=== PATIENT | female | born 1930 | race Two or more races ===

== ENCOUNTER 2019-02-08 11:56 | Inpatient (IN) | payer MEDICARE, OTHER ==
[~2019-02-08] VITALS: Ht 167.6 cm; Wt 76.2 kg
[~2019-02-08 11:56] MED LIST: KEFLEX500 MG ORAL
--- NOTE | 2019-02-08 12:00 | NUR ---
ED Nurse Note: pt arrives via ambulance from home with caregiver present for c/o increased weakness. pt at normal mentation. pt is nonverbal but follows with eyes and withdrawal to pain. pt tolerates iv and lab draw well.
[2019-02-08 12:33] LABS: BASOPHILS % (AUTO) 1.1 % (0.0-2.0); EOSINOPHILS % (AUTO) 2.8 % (0.0-3.0); HEMOGLOBIN 11.1 G/DL (12.0-16.0); LYMPHOCYTES % (AUTO) 22.5 % (20.0-45.0); MEAN CORPUSCULAR VOLUME 90 FL (80-99); MONOCYTES % (AUTO) 6.9 % (1.0-10.0); NEUTROPHILS % (AUTO) 66.8 % (45.0-75.0); PLATELET COUNT 183 K/UL (150-450); RED CELL DISTRIBUTION WIDTH 14.2 % (11.6-14.8); WHITE BLOOD COUNT 9.2 K/UL (4.8-10.8)
[2019-02-08 12:43] LABS: ANION GAP 12 mmol/L (5-15); BLOOD UREA NITROGEN 61 mg/dL (7-18); CALCIUM 8.9 MG/DL (8.5-10.1); CARBON DIOXIDE 27 MMOL/L (21-32); CHLORIDE 105 MMOL/L (98-107); POTASSIUM 5.2 MMOL/L (3.5-5.1); SODIUM 144 MMOL/L (136-145)
[2019-02-08 12:55] LABS: ALANINE AMINOTRANSFERASE 12 U/L (12-78); ALBUMIN 2.9 G/DL (3.4-5.0); ALBUMIN/GLOBULIN RATIO 0.7 (1.0-2.7); ALKALINE PHOSPHATASE 60 U/L (46-116); ASPARTATE AMINO TRANSFERASE 16 U/L (15-37); BILIRUBIN,TOTAL 0.6 MG/DL (0.2-1.0); CKMB 1.7 NG/ML (0.0-3.6); CREATINE KINASE 101 U/L (26-308)
[2019-02-08 12:56] VITALS: BP 114/76
[2019-02-08] MEDS ORDERED: TRAZODONE HCL50 MG ORAL (13:14)
[2019-02-08] MEDS ORDERED: VITAMIN D400 INTLU ORAL (13:14)
[2019-02-08] MEDS ORDERED: JANUVIA25 MG ORAL (13:14)
[2019-02-08] MEDS ORDERED: NEXIUM40 MG ORAL (13:14)
[2019-02-08] MEDS ORDERED: CREON DR 24,001 EACH PO (13:14)
[2019-02-08] MEDS ORDERED: DEPAKOTE250 MG PO (13:14)
[2019-02-08] MEDS ORDERED: MIRALAX17 G2 ORAL (13:14)
[2019-02-08] MEDS ORDERED: XARELTO10 MG ORAL (13:14)
[2019-02-08] MEDS ORDERED: CRESTOR10 M2 ORAL (13:14)
[2019-02-08] MEDS ORDERED: ATENOLOL25 MG ORAL (13:14)
[2019-02-08] MEDS ORDERED: FUROSEMIDE40 MG ORAL (13:14)
[2019-02-08] MEDS ORDERED: FOLIC ACID1 MG ORAL (13:14)
[2019-02-08] MEDS ORDERED: SPIRONOLACTONE25 MG ORAL (13:14)
--- NOTE | 2019-02-08 13:16 | NUR ---
ED Nurse Note: Troponin 0.104; Dr Soto notified and made aware.
[2019-02-08] MEDS ORDERED: Aspirin Baby 81mg ORAL ONE (13:30)
--- NOTE | 2019-02-08 13:49 | NUR ---
ED Nurse Note: pt with st cath urine obtained and urine sent.. small skin tear noted to right forearm md aware and tech to apply steri-strips to area. pt tolerates well. no other skin wounds, some ecchymosis noted to bilat arms.
--- NOTE | 2019-02-08 13:59 | Diagnostic Imaging Report ---
Indication: Shortness of breath Technique: One view of the chest Comparison: none Findings: Patient is rotated to the right. There is bilateral interstitial edema. The heart is enlarged. There is possibly a small amount of pleural fluid bilaterally. Impression: Cardiac megaly Bilateral interstitial edema and possible small pleural effusions
--- NOTE | 2019-02-08 14:12 | Emergency Room Report ---
History of Present Illness General Chief Complaint: Generalized Weakness Source: EMS, Caregiver Present Illness HPI 89-year-old female presents ED for evaluation. Brought in by EMS from home. For increased weakness also appears to be short of breath x 1 day. Building Performance Specialist at bedside states that patient has history of CHF. Recently discharged from [facility]. Denies chest pain. Denies fevers or chills. No other aggravating relieving factors. Denies any other associated symptoms Allergies: Coded Allergies: No Known Allergies (Unverified , 01/24/15) Patient History Past Medical History: DM, HTN, CHF Past Surgical History: none Pertinent Family History: none Social History: Denies: smoking, alcohol use, drug use Now: No Immunizations: UTD Reviewed Nursing Documentation: PMH: Agreed; PSxH: Agreed Nursing Documentation-PMH Past Medical History: No History, Except For Hx Cardiac Problems: Yes - HYPERLIPIDEMIA, NONSPECIFIED CARDIAC HISTORY. Hx Hypertension: Yes Hx Diabetes: Yes Review of Systems All Other Systems: limited Physical Exam Vital Signs Date Time Temp Pulse Resp B/P (MAP) Pulse Ox O2 Delivery O2 Flow Rate FiO2 02/08/19 11:49 98.4 104 24 110/68 (82) 100 Non-Rebreather 15.0 Sp02 EP Interpretation: reviewed, normal General Appearance: GCS 15, non-toxic, mild distress Head: normocephalic, atraumatic Eyes: bilateral eye normal inspection, bilateral eye PERRL ENT: hearing grossly normal, normal pharynx, no angioedema, normal voice Neck: full range of motion, supple/symm/no masses Respiratory: chest non-tender, crackles, speaking full sentences Cardiovascular #1: regular rate, rhythm, no edema Cardiovascular #2: 2+ carotid (R), 2+ carotid (L), 2+ radial (R), 2+ radial (L) , 2+ dorsalis pedis (R), 2+ dorsalis pedis (L) Gastrointestinal: normal bowel sounds, non tender, soft, non-distended, no guarding, no rebound Rectal: deferred Genitourinary: normal inspection, no CVA tenderness Musculoskeletal: back normal, gait/station normal, normal range of motion, non- tender Neurologic: other - lethargic Psychiatric: other - lethargic Reflexes: 3+ bicep (R), 3+ bicep (L), 3+ tricep (R), 3+ tricep (L), 3+ knee (R) , 3+ knee (L) Lymphatic: no adenopathy Medical Decision Making Diagnostic Impression: Primary Impression: CHF exacerbation Qualified Codes: I50.9 - Heart failure, unspecified Additional Impressions: Weakness Hyperkalemia Renal insufficiency ER Course Hospital Course 89 yo F presents to ED c/o SOB, weakness Differential diagnoses include: W[place]/unstable angina, contusion, muscle strain, PTX, rib fracture Clinical course Patient placed on stretcher. on button tufter. After initial history and physical I ordered labs, EKG, chest x-ray, labs reviewed- no leukocytosis, hemoglobin/hematocrit stable, trop 0.104, BUN/ Cr elevated, BNP 8992. K 5.2. EKG - not specified rhythm, LBBB, no acute ischemic changes interpreted by me Chest x-ray- cardiomegaly, CHF Lasix given. patient is DNr/selective. aspirin given. Case discussed with Dr. Tao and he agreed to accept the patient to his service for further care and support I. I feel this is a highly complex case requiring extensive working including EKG/Rhythm strip, Xray/CT/US, Blood/urine lab work, repeat exams while in ED, and administration of strong opiates/narcotics for pain control, admission to hospital or close patient follow up. Diagnosis - CHF exacerbation, weakness, hyperkalemia admitted to telemetry in serious condition Labs Test 02/08/19 12:20 White Blood Count 9.2 K/UL (4.8-10.8) Red Blood Count 3.90 M/UL (4.20-5.40) Hemoglobin 11.1 G/DL (12.0-16.0) Hematocrit 35.0 % (37.0-47.0) Mean Corpuscular Volume 90 FL (80-99) Mean Corpuscular Hemoglobin 28.3 PG (27.0-31.0) Mean Corpuscular Hemoglobin Concent 31.5 G/DL (32.0-36.0) Red Cell Distribution Width 14.2 % (11.6-14.8) Platelet Count 183 K/UL (150-450) Mean Platelet Volume 9.6 FL (6.5-10.1) Neutrophils (%) (Auto) 66.8 % (45.0-75.0) Lymphocytes (%) (Auto) 22.5 % (20.0-45.0) Monocytes (%) (Auto) 6.9 % (1.0-10.0) Eosinophils (%) (Auto) 2.8 % (0.0-3.0) Basophils (%) (Auto) 1.1 % (0.0-2.0) Sodium Level 144 MMOL/L (136-145) Potassium Level 5.2 MMOL/L (3.5-5.1) Chloride Level 105 MMOL/L (98-107) Carbon Dioxide Level 27 MMOL/L (21-32) Anion Gap 12 mmol/L (5-15) Blood Urea Nitrogen 61 mg/dL (7-18) Creatinine 3.0 MG/DL (0.55-1.30) Estimat Glomerular Filtration Rate mL/min (>60) Glucose Level 140 MG/DL (74-106) Lactic Acid Level 1.30 mmol/L (0.4-2.0) Calcium Level 8.9 MG/DL (8.5-10.1) Total Bilirubin 0.6 MG/DL (0.2-1.0) Aspartate Amino Transf (AST/SGOT) 16 U/L (15-37) Alanine Aminotransferase (ALT/SGPT) 12 U/L (12-78) Alkaline Phosphatase 60 U/L (46-116) Total Creatine Kinase 101 U/L (26-308) Creatine Kinase MB 1.7 NG/ML (0.0-3.6) Creatine Kinase MB Relative Index 1.6 Troponin I 0.104 ng/mL (0.000-0.056) Pro-B-Type Natriuretic Peptide 8992 pg/mL (0-125) Total Protein 7.1 G/DL (6.4-8.2) Albumin 2.9 G/DL (3.4-5.0) Globulin 4.2 g/dL Albumin/Globulin Ratio 0.7 (1.0-2.7) EKG Diagnostic Results Rate: normal Rhythm: NSR ST Segments: no acute changes ASA given to the pt in ED: No Rhythm Strip Diag. Results EP Interpretation: yes Rhythm: NSR, no PVC's, no ectopy Chest X-Ray Diagnostic Results Chest X-Ray Diagnostic Results : Chest X-Ray Ordered: Yes # of Views/Limited/Complete: 1 View Indication: Shortness of Breath EP Interpretation: Yes Interpretation: no pneumothorax, other - bilateral effusion/CHF Impression: Other - chf Electronically Signed by: Electronically signed by Miguelangel Soto MD Last Vital Signs Date Time Temp Pulse Resp B/P (MAP) Pulse Ox O2 Delivery O2 Flow Rate FiO2 02/08/19 12:57 105 20 Room Air 02/08/19 12:56 98.4 114/76 100 02/08/19 11:49 15.0 Status: improved Disposition: ADMITTED INPATIENT Condition: Serious Referrals: NOT CHOSEN IPA/,REFERRING (PCP) Miguelangel Soto MD Feb 08, 2019 14:12
[2019-02-08] MEDS ORDERED: Insulin Human Regular 100units/ml 3ml IV ONE (14:15)
[2019-02-08 14:23] LABS: APPEARANCE,URINE CLEAR; BILIRUBIN, URINE NEGATIVE (NEGATIVE); COLOR,URINE PALE YELLOW; GLUCOSE, URINE (UA) NEGATIVE (NEGATIVE); KETONES,URINE NEGATIVE (NEGATIVE); LEUKOCYTE ESTERASE ,URINE 3+ (NEGATIVE); NITRITE,URINE NEGATIVE (NEGATIVE); PH,URINE 8 (4.5-8.0); PROTEIN,URINE NEGATIVE (NEGATIVE); UROBILINOGEN,URINE NORMAL MG/DL (0.0-1.0)
--- NOTE | 2019-02-08 14:32 | NUR ---
ED Nurse Note: attempted to upload pic of right forearm skin tear, foam charger assisting and unalbe to lad pics.
[2019-02-08 15:01] VITALS: BP 116/94
--- NOTE | 2019-02-08 15:10 | NUR ---
ED Nurse Note: Attempted to give report to receiving nurse, unavailable at this time. Charge nurse aware.
--- NOTE | 2019-02-08 15:30 | NUR ---
ED Nurse Note: Report given to CLAUDIA Pal.
[2019-02-08] MEDS ORDERED: Miralax 17gm pkt ORAL PRN (15:45)
[2019-02-08] MEDS ORDERED: Albuterol/Ipratropium 3ml neb HHN PRN (15:45)
[2019-02-08 16:00] VITALS: BP 94/60
--- NOTE | 2019-02-08 16:06 | NUR ---
ED Nurse Note: Patient transported to room 203 via gurney. No changes in mentation. Received by RN Kae. Belongings list acknowledged and signed.
--- NOTE | 2019-02-08 16:15 | NUR ---
NURSE NOTES: I received the patient from the ER. Patient non-verbal and caregiver at the bedside. Patient attached to the tele monitor. Patient's skin assessed and there was not any skin breakdown noted. Bed in the lowest position and call light within reach. Yellow socks placed on the patient. Patient's siderails padded and suction set-up. I will continue to monitor the patient and implement orders.
[2019-02-08] MEDS: NovoLOG Insulin Flexpen SUBQ SCH ×2 (17:24→20:57)
--- NOTE | 2019-02-08 19:02 | History & Physical ---
History and Physical History & Physicial Inder Tao MD Feb 08, 2019 19:02
--- NOTE | 2019-02-08 19:04 | Cardiac Electrophysiology PN ---
Subjective Subjective [id number] Objective Last 24 Hour Vital Signs Date Time Temp Pulse Resp B/P (MAP) Pulse Ox O2 Delivery O2 Flow Rate FiO2 02/08/19 16:02 111 28 116/94 96 02/08/19 16:00 82 02/08/19 16:00 98.2 84 20 94/60 (71) 96 02/08/19 15:58 Room Air 02/08/19 15:01 111 28 116/94 96 Room Air 02/08/19 12:57 105 20 Room Air 02/08/19 12:56 98.4 105 24 114/76 100 Room Air 02/08/19 11:49 98.4 104 24 110/68 (82) 100 Non-Rebreather 15.0 Laboratory Tests Test 02/08/19 12:20 02/08/19 13:40 White Blood Count 9.2 K/UL (4.8-10.8) Red Blood Count 3.90 M/UL (4.20-5.40) L Hemoglobin 11.1 G/DL (12.0-16.0) L Hematocrit 35.0 % (37.0-47.0) L Mean Corpuscular Volume 90 FL (80-99) Mean Corpuscular Hemoglobin 28.3 PG (27.0-31.0) Mean Corpuscular Hemoglobin Concent 31.5 G/DL (32.0-36.0) L Red Cell Distribution Width 14.2 % (11.6-14.8) Platelet Count 183 K/UL (150-450) Mean Platelet Volume 9.6 FL (6.5-10.1) Neutrophils (%) (Auto) 66.8 % (45.0-75.0) Lymphocytes (%) (Auto) 22.5 % (20.0-45.0) Monocytes (%) (Auto) 6.9 % (1.0-10.0) Eosinophils (%) (Auto) 2.8 % (0.0-3.0) Basophils (%) (Auto) 1.1 % (0.0-2.0) Sodium Level 144 MMOL/L (136-145) Potassium Level 5.2 MMOL/L (3.5-5.1) H Chloride Level 105 MMOL/L (98-107) Carbon Dioxide Level 27 MMOL/L (21-32) Anion Gap 12 mmol/L (5-15) Blood Urea Nitrogen 61 mg/dL (7-18) H Creatinine 3.0 MG/DL (0.55-1.30) H Estimat Glomerular Filtration Rate mL/min (>60) Glucose Level 140 MG/DL (74-106) H Lactic Acid Level 1.30 mmol/L (0.4-2.0) Calcium Level 8.9 MG/DL (8.5-10.1) Total Bilirubin 0.6 MG/DL (0.2-1.0) Aspartate Amino Transf (AST/SGOT) 16 U/L (15-37) Alanine Aminotransferase (ALT/SGPT) 12 U/L (12-78) Alkaline Phosphatase 60 U/L (46-116) Total Creatine Kinase 101 U/L (26-308) Creatine Kinase MB 1.7 NG/ML (0.0-3.6) Creatine Kinase MB Relative Index 1.6 Troponin I 0.104 ng/mL (0.000-0.056) Pro-B-Type Natriuretic Peptide 8992 pg/mL (0-125) H Total Protein 7.1 G/DL (6.4-8.2) Albumin 2.9 G/DL (3.4-5.0) L Globulin 4.2 g/dL Albumin/Globulin Ratio 0.7 (1.0-2.7) L Urine Color Pale yellow Urine Appearance Clear Urine pH 8 (4.5-8.0) Urine Specific [place] 1.010 (1.005-1.035) Urine Protein Negative (NEGATIVE) Urine Glucose (UA) Negative (NEGATIVE) Urine Ketones Negative (NEGATIVE) Urine Blood 1+ (NEGATIVE) H Urine Nitrite Negative (NEGATIVE) Urine Bilirubin Negative (NEGATIVE) Urine Urobilinogen Normal MG/DL (0.0-1.0) Urine Leukocyte Esterase 3+ (NEGATIVE) H Urine RBC 0-2 /HPF (0 - 2) Urine WBC 20-30 /HPF (0 - 2) H Urine Squamous Epithelial Cells Few /LPF (NONE/OCC) Urine Bacteria Few /HPF (NONE) Valeriy Hernandez MD Feb 08, 2019 19:04
--- NOTE | 2019-02-08 19:30 | NUR ---
NURSE NOTES: Received patient from Kae TAYLOR. Patient in bed, on room air, no s/s of respiratory distress. Bed in low position, locked, bed alarm on, call light within reach. Patient awake, but does not respond to questioning. Yells and withdrawals when attempting to assess patient. PIV 20 gauge on right hand intact, patent, no s/s of infection or infiltration.
--- NOTE | 2019-02-08 19:38 | NUR ---
CASE MANAGEMENT: REVIEW 89Y/F BIBA FROM HOME CC: SOB . GENERALIZED WEAKNESS SI: CHF EXACERBATION . T 98.4 HR 104 RR 24 BP 94/60 SAT 100% NON-REBREATHER 15.0 K 5.2 BUN 61 CR 3.0 TROPONIN I 0.104 BNP 8992 IS: ASA PO X1 LASIX IV X1 D50W IVF BOLUS X1 PATIENT ADMITTED TO TELEMETRY UNIT 02/08/2019 DCP: PATIENT IS FROM HOME
--- NOTE | 2019-02-08 19:40 | NUR ---
HAND-OFF: Report given to Dinorah Jacob RN.
[2019-02-08] MEDS ORDERED: ATIVAN0.5 MG (19:45)
[2019-02-08 20:00] VITALS: BP 123/72
[2019-02-08] MEDS ORDERED: cefTRIAXone 1 GM in D5W 55 ML IVPB SCH (20:00)
[2019-02-08] MEDS: Depakote 125mg Sprinkles ORAL SCH (21:00)
[2019-02-08] MEDS ORDERED: TraZODone 50mg tab ORAL SCH (21:00)
--- NOTE | 2019-02-08 21:00 | NUR ---
NURSE NOTES: Patient refusing oral medication, liquids, and solid foods. Spoke with daughter Uma and was instructed to have a woman give medication with crush with apple sauce. Crushed meds with apple sauce, had female staff attempt to give medication, patient spit it out and turned away.
--- NOTE | 2019-02-08 21:11 | NUR ---
NURSE NOTES: Notified Dr. Hernandez and left message regarding elevated troponin of 0.111.
--- NOTE | 2019-02-08 22:15 | History and Physical Report ---
DATE OF ADMISSION: 02/08/2019 CHIEF COMPLAINT: Shortness of breath. HISTORY OF PRESENT ILLNESS: This is an 89-year-old very delightful , [place]-speaking female with past medical history significant for advanced dementia, hypertension, dyslipidemia, congestive heart failure with history of atrial fibrillation with rapid ventricular rate, who was presented to the emergency room complaining about shortness of breath over one day. Caregiver stated the patient started having shortness of breath. She was recently admitted to [facility] from 01/27/2019 through 02/06/2019. The patient was admitted for the acute CHF exacerbation with pulmonary edema, status improved on IV Lasix, and subsequently was discharged home to be followed up with primary doctor, Dr. Barbosa. The patient's status gradually improved, however, in the past 24 hours, she has been having worsening of shortness of breath and shortly after initial evaluation in emergency, the patient was admitted to the hospital with acute CHF exacerbation with pulmonary edema. PAST MEDICAL HISTORY/PAST SURGICAL HISTORY: Significant for congestive heart failure, advanced dementia, hypertension, dyslipidemia, paroxysmal atrial fibrillation with rapid ventricular rate. History is very limited secondary to the patient's status. History mostly taken from the ER chart as well as [facility] record which was obtained and placed in the chart. MEDICATIONS AT HOME: Significant for atenolol 25 mg b.i.d., Keflex 500 mg twice a day, Depakote 250 twice a day, Nexium 40 mg b.i.d., folic acid 1 mg daily, Lasix 40 mg daily, Creon 1 tablet p.o. 3 times a day, MiraLAX p.r.n., Xarelto 10 mg daily, Crestor 10 mg daily, Januvia 25 mg daily, spironolactone 25 mg, trazodone 50, and vitamin D 2000 international units daily. ALLERGIES: No known drug allergies. SOCIAL HISTORY: No smoking, alcohol, or drugs. FAMILY HISTORY: Noncontributory. REVIEW OF SYSTEMS: Very limited secondary to the patient's status shortness of breath and weakness. Denies any hemoptysis or hematochezia. Denies any bright red blood per rectum. PHYSICAL EXAMINATION: VITAL SIGNS: On admission from the ER, significant for temperature 98.4, pulse of 104, respirations 24, blood pressure 110/68. GENERAL: The patient is awake, responsive, in no acute distress, answers questions with single word with moaning. HEAD AND NECK: Pupils are equal and reactive to light. Extraocular movements intact. Left eye has cataract. Neck was supple. Positive JVD. LUNGS: Good air entry. No wheezing or rales. Decreased in bases. HEART: S1, S2. Distant heart sounds. No murmur or gallops. ABDOMEN: Soft, nondistended, nontender, mildly obese. EXTREMITIES: No cyanosis, clubbing, or edema. NEUROLOGIC: Cranial nerves II through XII grossly intact. Motor is 5/5 in all extremities. Gait was not assessed due to the patient's status. RECTAL: Refused and deferred. GENITOURINARY: Refused and deferred. PSYCHIATRIC: Mood and affect is intact. LABORATORY AND DIAGNOSTIC DATA: Laboratory on admission from the ER, WBC of 9.2, hemoglobin 11, hematocrit 35, platelet is 183,000. Sodium 144, potassium 5.2, chloride 105, bicarb 27, BUN 61, creatinine 3.0, glucose is 140, lactic acid is 1.3, calcium is 8.9, total bilirubin of 0.6, AST of 16, ALT of 12. Troponin I is 0.104. ProBNP of 8992. UA is +3 leukocytes, +1 blood, rbc. Chest x-ray was noted to be cardiomegaly with bilateral interstitial edema with possible small pleural effusion. EKG is atrial flutter with left bundle-branch block, no ST elevation was identified. Compared to the old EKG at [facility] from January 27, no changes. ASSESSMENT: 1. Acute CHF exacerbation with diastolic dysfunction. 2. Pulmonary edema. 3. Acute kidney injury and chronic renal insufficiency. 4. Hypertension. 5. Dyslipidemia. 6. Diabetes type 2. 7. Advanced Alzheimer dementia. 8. Osteoarthritis. 9. Atrial flutter with left bundle-branch block. PLAN: Admit the patient to telemetry. We will follow up with laboratory, cardiac enzymes. Code status is as per POLST in the chart, DNR. Reviewed records from the [facility] and placed in the chart. Follow up with Dr. Hernandez, Cardiology Electrophysiology consultation as well as Dr. Cooper, Pulmonary/Critical Care. We will discuss with the family member extensively with regard to the care that will be provided. Inder Tao M.D. DR: Roselia JOB#: [id number] CC:
[2019-02-08 22:20] VITALS: BP 96/54
--- NOTE | 2019-02-08 22:20 | NUR ---
NURSE NOTES: Rechecked BP, 96/54, HR 91, will hold 2200 iv lasix, die maintenance technician at bedside to perform venous duplex.
--- NOTE | 2019-02-08 22:45 | NUR ---
NURSE NOTES: Received call from Dr. Hernandez, informed him there will be another troponin at 0400 and that patient is refusing meds, bp is 96/54 and lasix was held. Received orders to hold lasix for SBP <100. No other orders.
--- NOTE | 2019-02-08 23:47 | NUR ---
NURSE NOTES: Venous duplex negative.
[2019-02-09] VITALS (9 sets, daily range): BP systolic 77–154; BP diastolic 43–86
--- NOTE | 2019-02-09 00:45 | Consultation ---
DATE OF CONSULTATION: 02/08/2019 CARDIOLOGY CONSULTATION CONSULTING PHYSICIAN: Valeriy Hernandez M.D. REFERRING PHYSICIAN: Inder Tao M.D. REASON FOR CONSULTATION: Management of atrial flutter and congestive heart failure. HISTORY OF PRESENT ILLNESS: The patient is an 89-year-old [place] lady with history of hypertension, congestive heart failure, as well as history of atrial flutter and left bundle-branch block, and hyperlipidemia, who was recently at [facility] with atrial fibrillation with rapid ventricular response and CHF. The patient was just discharged from the hospital just 3 days ago. The patient was diuresed with Lasix, however at home she got more short of breath. The patient was admitted to the ER and was admitted for further evaluation and management. The patient was found to be in atrial flutter again with left bundle-branch block and congestive heart failure. REVIEW OF SYSTEMS: Negative other than what is mentioned in the history of present illness. PAST MEDICAL HISTORY: 1. Hypertension. 2. Diabetes. 3. Congestive heart failure. 4. Atrial flutter. 5. Left bundle-branch block. 6. Dementia. 7. Diabetes. FAMILY HISTORY: Noncontributory. SOCIAL HISTORY: Does not smoke or drink alcohol. PHYSICAL EXAMINATION: VITAL SIGNS: Showed blood pressure of 116/94, pulse of 110, respirations 28, and temperature 98.2. HEAD AND NECK: Shows no jugular venous distention. LUNGS: Decreased breath sounds. CARDIOVASCULAR: Shows irregular S1 and S2 with no gallop. ABDOMEN: Soft. EXTREMITIES: A 1+ pitting edema. LABORATORY DATA: Labs showed white count of 9.2, hemoglobin 11.9, hematocrit 35, and platelet count is 183,000. Sodium is 144, potassium is 5.2, BUN of 61, creatinine of 3, and glucose of 140. Troponin is 0.104. BNP is 9000. ASSESSMENT AND PLAN: 1. Elevated troponin of 0.104, likely due to renal failure with BUN and creatinine of 3. The patient has underlying left bundle-branch block and EKG is . We will get serial cardiac enzymes and repeat the echocardiogram for further evaluation of congestive heart failure with BNP of 9000 and also a creatinine of 3. The patient is on Lasix 40 mg IV every eight hours. 2. Atrial flutter, rate is currently controlled. Off any AV efrain blocking agents and is on anticoagulation with Xarelto. 3. Hypertension. Continue current heart failure medications. 4. Diabetes. 5. Dementia. Thank you very much, Dr. Tao, for allowing me to participate in the care of this patient. Please do not hesitate to contact me for any questions regarding my evaluation. Valeriy Hernandez M.D. DR: MAYNOR JOB#: [id number] CC:
[2019-02-09] MEDS: NovoLOG Insulin Flexpen SUBQ SCH ×4 (06:14→21:41)
[2019-02-09] MEDS ORDERED: sitaGLIPtin 50mg tab ORAL SCH (06:30)
--- NOTE | 2019-02-09 06:30 | NUR ---
NURSE NOTES: Patient pulled out IV, attempted to reinsert PIV, patient kept resisting and moving. Unable to obtain IV access after multiple attempts.
--- NOTE | 2019-02-09 07:30 | NUR ---
HAND-OFF: Report given to Shree TAYLOR. Plan of care endorsed.
--- NOTE | 2019-02-09 07:35 | NUR ---
NURSE NOTES: Received report from CLAUDIA Suarez. patient is resting in bed in stable condition. AO X1 with no signs and symptoms of acute distress at this time. Breathing unlabored in room air. No IV line, will try to get one later . Safety precaution in place; side rails up x2, and padded. Call Light and bed side table within reach, bed in lowest position, brakes and alarm on at all times. Will continue plan of care.
[2019-02-09] MEDS: Depakote 125mg Sprinkles ORAL SCH ×2 (08:29→21:40)
[2019-02-09 08:48] LABS: ANION GAP 9 mmol/L (5-15); BLOOD UREA NITROGEN 60 mg/dL (7-18); CALCIUM 9.2 MG/DL (8.5-10.1); CARBON DIOXIDE 29 MMOL/L (21-32); CHLORIDE 104 MMOL/L (98-107); CHOLESTEROL 123 MG/DL (< 200); CREATININE 2.7 MG/DL (0.55-1.30); POTASSIUM 4.1 MMOL/L (3.5-5.1); SODIUM 142 MMOL/L (136-145)
[2019-02-09] MEDS ORDERED: Xarelto 15mg tab ORAL SCH (09:00)
[2019-02-09 09:29] LABS: PHOSPHORUS 4.2 MG/DL (2.5-4.9)
--- NOTE | 2019-02-09 10:37 | Diagnostic Imaging Report ---
Indication: Shortness of breath Technique: One view of the chest Comparison: 02/08/2019 Findings: Patient is rotated to the right. There is evidence of persistent pleural fluid and/or atelectasis at the right lung base. Mild interstitial congestive changes persist. The aorta is tortuous. Degenerative changes of the right shoulder are again noted. Findings are unchanged Impression: Unchanged, over one day, findings as above.
--- NOTE | 2019-02-09 11:36 | Cardiac Electrophysiology PN ---
Assessment/Plan Assessment/Plan 1. Elevated troponin of 0.104, 0.11,0.08, likely due to renal failure with creatinine of 3. The patient has underlying left bundle-branch block. DNR and DNI. Treat medically. No CP. BP 90s avoid betablockers 2. Atrial flutter, rate is currently controlled off any AV efrain blocking agents and is on anticoagulation with Xarelto. 3. CHF EF 25% with BNP of 9000 and also a creatinine of 3. The patient is on Lasix 40 mg IV every eight hours. 3. Hypertension. Continue current heart failure medications. 4. Diabetes. 5. Dementia. 6. Renal failure. 7. DNR,DNI DW RN Subjective Subjective In atrial fib with controlled rate. DNR and DNI now Objective Last 24 Hour Vital Signs Date Time Temp Pulse Resp B/P (MAP) Pulse Ox O2 Delivery O2 Flow Rate FiO2 02/09/19 09:00 Room Air 02/09/19 08:22 107 20 96 Room Air 21 02/09/19 08:00 106 02/09/19 08:00 97.5 94 20 154/86 (108) 96 02/09/19 06:04 106 94/53 (67) 02/09/19 04:00 97.5 106 19 112/62 (79) 95 02/09/19 03:49 107 02/09/19 00:00 97.7 100 20 120/82 (95) 97 02/08/19 23:34 86 02/08/19 22:20 94 96/54 (68) 02/08/19 21:00 Room Air 02/08/19 20:00 97.7 105 20 123/72 (89) 97 02/08/19 16:02 111 28 116/94 96 02/08/19 16:00 82 02/08/19 16:00 98.2 84 20 94/60 (71) 96 02/08/19 15:58 Room Air 02/08/19 15:01 111 28 116/94 96 Room Air 02/08/19 12:57 105 20 Room Air 02/08/19 12:56 98.4 105 24 114/76 100 Room Air 02/08/19 11:49 98.4 104 24 110/68 (82) 100 Non-Rebreather 15.0 Intake and Output 02/08/19 02/09/19 19:00 07:00 Intake Total 60 ml 0 ml Output Total 100 ml Balance -40 ml 0 ml Intake Oral 60 ml 0 ml Output Urine Total 100 ml # Voids 2 Laboratory Tests Test 02/08/19 12:20 02/08/19 13:40 02/08/19 20:15 02/09/19 07:34 White Blood Count 9.2 K/UL (4.8-10.8) Red Blood Count 3.90 M/UL (4.20-5.40) L Hemoglobin 11.1 G/DL (12.0-16.0) L Hematocrit 35.0 % (37.0-47.0) L Mean Corpuscular Volume 90 FL (80-99) Mean Corpuscular Hemoglobin 28.3 PG (27.0-31.0) Mean Corpuscular Hemoglobin Concent 31.5 G/DL (32.0-36.0) L Red Cell Distribution Width 14.2 % (11.6-14.8) Platelet Count 183 K/UL (150-450) Mean Platelet Volume 9.6 FL (6.5-10.1) Neutrophils (%) (Auto) 66.8 % (45.0-75.0) Lymphocytes (%) (Auto) 22.5 % (20.0-45.0) Monocytes (%) (Auto) 6.9 % (1.0-10.0) Eosinophils (%) (Auto) 2.8 % (0.0-3.0) Basophils (%) (Auto) 1.1 % (0.0-2.0) Sodium Level 144 MMOL/L (136-145) 142 MMOL/L (136-145) Potassium Level 5.2 MMOL/L (3.5-5.1) H 4.1 MMOL/L (3.5-5.1) Chloride Level 105 MMOL/L (98-107) 104 MMOL/L (98-107) Carbon Dioxide Level 27 MMOL/L (21-32) 29 MMOL/L (21-32) Anion Gap 12 mmol/L (5-15) 9 mmol/L (5-15) Blood Urea Nitrogen 61 mg/dL (7-18) H 60 mg/dL (7-18) H Creatinine 3.0 MG/DL (0.55-1.30) H 2.7 MG/DL (0.55-1.30) H Estimat Glomerular Filtration Rate mL/min (>60) mL/min (>60) Glucose Level 140 MG/DL (74-106) H 139 MG/DL (74-106) H Lactic Acid Level 1.30 mmol/L (0.4-2.0) Calcium Level 8.9 MG/DL (8.5-10.1) 9.2 MG/DL (8.5-10.1) Total Bilirubin 0.6 MG/DL (0.2-1.0) Aspartate Amino Transf (AST/SGOT) 16 U/L (15-37) Alanine Aminotransferase (ALT/SGPT) 12 U/L (12-78) Alkaline Phosphatase 60 U/L (46-116) Total Creatine Kinase 101 U/L (26-308) Creatine Kinase MB 1.7 NG/ML (0.0-3.6) Creatine Kinase MB Relative Index 1.6 Troponin I 0.104 ng/mL (0.000-0.056) 0.111 ng/mL (0.000-0.056) 0.082 ng/mL (0.000-0.056) Pro-B-Type Natriuretic Peptide 8992 pg/mL (0-125) H 79595 pg/mL (0-125) H Total Protein 7.1 G/DL (6.4-8.2) Albumin 2.9 G/DL (3.4-5.0) L Globulin 4.2 g/dL Albumin/Globulin Ratio 0.7 (1.0-2.7) L Urine Color Pale yellow Urine Appearance Clear Urine pH 8 (4.5-8.0) Urine Specific [place] 1.010 (1.005-1.035) Urine Protein Negative (NEGATIVE) Urine Glucose (UA) Negative (NEGATIVE) Urine Ketones Negative (NEGATIVE) Urine Blood 1+ (NEGATIVE) H Urine Nitrite Negative (NEGATIVE) Urine Bilirubin Negative (NEGATIVE) Urine Urobilinogen Normal MG/DL (0.0-1.0) Urine Leukocyte Esterase 3+ (NEGATIVE) H Urine RBC 0-2 /HPF (0 - 2) Urine WBC 20-30 /HPF (0 - 2) H Urine Squamous Epithelial Cells Few /LPF (NONE/OCC) Urine Bacteria Few /HPF (NONE) Phosphorus Level 4.2 MG/DL (2.5-4.9) Magnesium Level 2.6 MG/DL (1.8-2.4) H Cholesterol Level 123 MG/DL (< 200) Microbiology Date/Time Source Procedure Growth Status 02/08/19 13:40 Urine,Clean Catch Urine Culture - Preliminary Gram Negative Bacillus 1 Resulted Objective HEAD AND NECK: Shows no jugular venous distention. LUNGS: Decreased breath sounds. CARDIOVASCULAR: Shows irregular S1 and S2 with no gallop. ABDOMEN: Soft. EXTREMITIES: A 1+ pitting edema. Valeriy Hernandez MD Feb 09, 2019 11:36
--- NOTE | 2019-02-09 11:43 | Consultation ---
History of Present Illness General Chief Complaint: Generalized Weakness Present Illness HPI 89-year-old female with hx of DM, HTN, CHF presented to ED for evaluation from home with CC of increased weakness also appears to be short of breath x 1 day. She was just recently got discharged from [facility]. Denies chest pain. Denies fevers or chills. She was found to be in pulmonary edema and is admitted to telemetry for further management. Allergies: Coded Allergies: No Known Allergies (Unverified , 01/24/15) Medication History Scheduled Atenolol* (Tenormin*), 25 MG ORAL BID, (Reported) Divalproex Sodium* (Depakote*), 125 MG PO Q12HR, (Reported) Esomeprazole Magnesium (Nexium), 40 MG ORAL BID, (Reported) Folic Acid* (Folic Acid*), 1 MG ORAL DAILY, (Reported) Furosemide* (Lasix*), 40 MG ORAL DAILY, (Reported) Polyethylene Glycol 3350* (Miralax*), 17 GM ORAL DAILY, (Reported) Rivaroxaban (Xarelto*), 15 MG ORAL DAILY, (Reported) Rosuvastatin Calcium* (Crestor*), 10 MG ORAL DAILY, (Reported) Sitagliptin* (Januvia*), 50 MG ORAL DAILY, (Reported) Spironolactone* (Aldactone*), 25 MG ORAL DAILY, (Reported) Trazodone Hcl* (Desyrel*), 50 MG ORAL BEDTIME, (Reported) Vitamin D (Vitamin D3), 2,000 UNITS ORAL DAILY, (Reported) Miscellaneous Medications Lipase/Protease/Amylase (Creon Dr 24,000 Units Capsule), 1 EACH PO, (Reported) Lorazepam* (Ativan*), Unknown Dose, (Reported) Discontinued Medications Cephalexin* (Keflex*), 500 MG ORAL BID Discontinued Reason: Pt stopped taking med Patient History Healthcare decision maker Daughter - Uma Kinney Resuscitation status Advanced Directive on File No Past Medical/Surgical History Past Medical/Surgical History: (1) CHF (congestive heart failure) (2) Diabetes mellitus (3) Acute pulmonary edema (4) Acute respiratory failure Review of Systems Constitutional: Reports: no symptoms Eye: Reports: no symptoms Physical Exam General Appearance: WD/WN, no apparent distress Lines, tubes and drains: peripheral HEENT: normocephalic, atraumatic Neck: non-tender, supple Respiratory/Chest: chest wall non-tender, lungs clear Breasts: no masses Cardiovascular/Chest: normal peripheral pulses, normal rate Abdomen: hyperactive bowel sounds Extremities: normal range of motion Last 24 Hour Vital Signs Date Time Temp Pulse Resp B/P (MAP) Pulse Ox O2 Delivery O2 Flow Rate FiO2 02/09/19 09:00 Room Air 02/09/19 08:22 107 20 96 Room Air 21 02/09/19 08:00 106 02/09/19 08:00 97.5 94 20 154/86 (108) 96 02/09/19 06:04 106 94/53 (67) 02/09/19 04:00 97.5 106 19 112/62 (79) 95 02/09/19 03:49 107 02/09/19 00:00 97.7 100 20 120/82 (95) 97 02/08/19 23:34 86 02/08/19 22:20 94 96/54 (68) 02/08/19 21:00 Room Air 02/08/19 20:00 97.7 105 20 123/72 (89) 97 02/08/19 16:02 111 28 116/94 96 02/08/19 16:00 82 02/08/19 16:00 98.2 84 20 94/60 (71) 96 02/08/19 15:58 Room Air 02/08/19 15:01 111 28 116/94 96 Room Air 02/08/19 12:57 105 20 Room Air 02/08/19 12:56 98.4 105 24 114/76 100 Room Air 02/08/19 11:49 98.4 104 24 110/68 (82) 100 Non-Rebreather 15.0 Intake and Output 02/08/19 02/09/19 19:00 07:00 Intake Total 60 ml 0 ml Output Total 100 ml Balance -40 ml 0 ml Intake Oral 60 ml 0 ml Output Urine Total 100 ml # Voids 2 Laboratory Tests Test 02/08/19 12:20 02/08/19 13:40 02/08/19 20:15 02/09/19 07:34 White Blood Count 9.2 K/UL (4.8-10.8) Red Blood Count 3.90 M/UL (4.20-5.40) L Hemoglobin 11.1 G/DL (12.0-16.0) L Hematocrit 35.0 % (37.0-47.0) L Mean Corpuscular Volume 90 FL (80-99) Mean Corpuscular Hemoglobin 28.3 PG (27.0-31.0) Mean Corpuscular Hemoglobin Concent 31.5 G/DL (32.0-36.0) L Red Cell Distribution Width 14.2 % (11.6-14.8) Platelet Count 183 K/UL (150-450) Mean Platelet Volume 9.6 FL (6.5-10.1) Neutrophils (%) (Auto) 66.8 % (45.0-75.0) Lymphocytes (%) (Auto) 22.5 % (20.0-45.0) Monocytes (%) (Auto) 6.9 % (1.0-10.0) Eosinophils (%) (Auto) 2.8 % (0.0-3.0) Basophils (%) (Auto) 1.1 % (0.0-2.0) Sodium Level 144 MMOL/L (136-145) 142 MMOL/L (136-145) Potassium Level 5.2 MMOL/L (3.5-5.1) H 4.1 MMOL/L (3.5-5.1) Chloride Level 105 MMOL/L (98-107) 104 MMOL/L (98-107) Carbon Dioxide Level 27 MMOL/L (21-32) 29 MMOL/L (21-32) Anion Gap 12 mmol/L (5-15) 9 mmol/L (5-15) Blood Urea Nitrogen 61 mg/dL (7-18) H 60 mg/dL (7-18) H Creatinine 3.0 MG/DL (0.55-1.30) H 2.7 MG/DL (0.55-1.30) H Estimat Glomerular Filtration Rate mL/min (>60) mL/min (>60) Glucose Level 140 MG/DL (74-106) H 139 MG/DL (74-106) H Lactic Acid Level 1.30 mmol/L (0.4-2.0) Calcium Level 8.9 MG/DL (8.5-10.1) 9.2 MG/DL (8.5-10.1) Total Bilirubin 0.6 MG/DL (0.2-1.0) Aspartate Amino Transf (AST/SGOT) 16 U/L (15-37) Alanine Aminotransferase (ALT/SGPT) 12 U/L (12-78) Alkaline Phosphatase 60 U/L (46-116) Total Creatine Kinase 101 U/L (26-308) Creatine Kinase MB 1.7 NG/ML (0.0-3.6) Creatine Kinase MB Relative Index 1.6 Troponin I 0.104 ng/mL (0.000-0.056) 0.111 ng/mL (0.000-0.056) 0.082 ng/mL (0.000-0.056) Pro-B-Type Natriuretic Peptide 8992 pg/mL (0-125) H 99649 pg/mL (0-125) H Total Protein 7.1 G/DL (6.4-8.2) Albumin 2.9 G/DL (3.4-5.0) L Globulin 4.2 g/dL Albumin/Globulin Ratio 0.7 (1.0-2.7) L Urine Color Pale yellow Urine Appearance Clear Urine pH 8 (4.5-8.0) Urine Specific [place] 1.010 (1.005-1.035) Urine Protein Negative (NEGATIVE) Urine Glucose (UA) Negative (NEGATIVE) Urine Ketones Negative (NEGATIVE) Urine Blood 1+ (NEGATIVE) H Urine Nitrite Negative (NEGATIVE) Urine Bilirubin Negative (NEGATIVE) Urine Urobilinogen Normal MG/DL (0.0-1.0) Urine Leukocyte Esterase 3+ (NEGATIVE) H Urine RBC 0-2 /HPF (0 - 2) Urine WBC 20-30 /HPF (0 - 2) H Urine Squamous Epithelial Cells Few /LPF (NONE/OCC) Urine Bacteria Few /HPF (NONE) Phosphorus Level 4.2 MG/DL (2.5-4.9) Magnesium Level 2.6 MG/DL (1.8-2.4) H Cholesterol Level 123 MG/DL (< 200) Microbiology Date/Time Source Procedure Growth Status 02/08/19 13:40 Urine,Clean Catch Urine Culture - Preliminary Gram Negative Bacillus 1 Resulted Height (Feet): 5 Height (Inches): 6.00 Weight (Pounds): 180 Medications Current Medications Medications (Trade) Dose Ordered Sig/Harjinder Route PRN Reason Start Time Stop Time Status Last Admin Dose Admin Acetaminophen (Tylenol) 650 mg Q4H PRN ORAL Fever 02/08/19 15:45 03/10/19 15:44 Albuterol/ Ipratropium (Albuterol/ Ipratropium) 3 ml Q4H PRN HHN Shortness of Breath 02/08/19 15:45 02/13/19 15:44 Ceftriaxone Sodium 1 gm/ Dextrose 55 ml @ 110 mls/hr Q24H IVPB 02/08/19 20:00 02/15/19 19:59 02/08/19 20:36 Dextrose (Dextrose 50%) 25 ml Q30M PRN IV Hypoglycemia 02/08/19 15:45 03/10/19 15:44 Dextrose (Dextrose 50%) 50 ml Q30M PRN IV Hypoglycemia 02/08/19 15:45 03/10/19 15:44 Divalproex Sodium (Depakote Sprinkles) 125 mg Q12HR ORAL 02/08/19 21:00 03/10/19 20:59 02/09/19 08:29 Furosemide (Lasix) 40 mg EVERY 8 HOURS IV 02/08/19 22:00 03/10/19 21:59 Insulin Aspart (NovoLOG) BEFORE MEALS AND HS SUBQ 02/08/19 16:30 03/10/19 16:29 02/09/19 06:14 Ondansetron HCl (Zofran) 4 mg Q6H PRN IVP Nausea & Vomiting 02/08/19 15:45 03/10/19 15:44 Polyethylene Glycol (Miralax) 17 gm DAILYPRN PRN ORAL Constipation 02/08/19 15:45 03/10/19 15:44 Rivaroxaban (Xarelto) 15 mg DAILY ORAL 02/09/19 09:00 03/11/19 08:59 02/09/19 08:29 Sitagliptin Phosphate (Januvia) 50 mg Q24H ORAL 02/09/19 06:30 03/11/19 06:29 Temazepam (Restoril) 15 mg HSPRN PRN ORAL Insomnia 02/08/19 15:45 02/15/19 15:44 Trazodone HCl (Desyrel) 50 mg BEDTIME ORAL 02/08/19 21:00 03/10/19 20:59 Assessment/Plan Problem List: (1) Acute pulmonary edema ICD Codes: J81.0 - Acute pulmonary edema SNOMED: 51771700 (2) Acute respiratory failure ICD Codes: J96.00 - Acute respiratory failure, unspecified whether with hypoxia or hypercapnia SNOMED: 36219648 (3) CHF (congestive heart failure) ICD Codes: I50.9 - Heart failure, unspecified SNOMED: 69364218 (4) UTI (lower urinary tract infection) ICD Codes: N39.0 - Urinary tract infection, site not specified SNOMED: 0609902 (5) Diabetes mellitus ICD Codes: E11.9 - Type 2 diabetes mellitus without complications SNOMED: 56147521 Assessment/Plan: diuretics respiratory treatment check Echo, cardiology to see watch intake/output titrate fio2 to sat of 9% DNR is very appropriate dvt prophylaxis Anastasia Cooper MD Feb 09, 2019 11:43
--- NOTE | 2019-02-09 12:41 | Diagnostic Imaging Report ---
Indication: Abnormal renal function tests. Abdominal pain Technique: Grayscale and duplex images of the kidneys, retroperitoneum, and bladder were obtained. Comparison: none Findings: Right kidney measures 8.5 cm in length. Left kidney measures 8.1 cm in length. Both kidneys demonstrate slightly increased echogenicity.. No hydronephrosis. There are renal cysts bilaterally.. Normal inferior vena cava. Bladder is normal. Impression: Slightly increased renal echogenicity bilaterally, consistent with medical renal disease Bilateral renal cysts.
--- NOTE | 2019-02-09 15:16 | NUR ---
RADIOLOGY DEPT., CHEST X-RAY DONE.-P.DYE
[2019-02-09] MEDS ORDERED: Tubing IV Secondary IV ONE (15:29)
[2019-02-09] MEDS ORDERED: NS 275ml ONE (15:29)
[2019-02-09] MEDS ORDERED: Albuterol/Ipratropium 3ml neb HHN PRN (17:58)
[2019-02-09] MEDS ORDERED: Miralax 17gm pkt ORAL PRN (17:59)
--- NOTE | 2019-02-09 18:13 | NUR ---
TRANSFER TO FLOOR: Patient transferred to Med- Surg, per Dr. Cooper's order. Report given to CLAUDIA Arango. Patient has no belongings and medications given to CLAUDIA Arango. Family at bed side and informed of transfer, Patient transferred in stable condition.
--- NOTE | 2019-02-09 19:22 | NUR ---
HAND-OFF: Report given to Bhumi TAYLOR.
--- NOTE | 2019-02-09 19:40 | NUR ---
NURSE NOTES: Received patient in bed, asleep, arousable to name. Made aware by ACCOUNTING MACHINE MECHANIC of low BP 88/43 HR 109. Bp was retaken and result was 77/48 HR 104 on right arm and BP 67/32 HR 103 left arm. left message for Dr. Hernandez and received order for NS 500 cc bolus x1. Charge nurse made aware. IV in place, patent. No s/s respiratory distress noted. No s/s pain noted. Bed in lowest position, locked, bed alarm on. Will continue to monitor.
[2019-02-09] MEDS: TraZODone 50mg tab ORAL SCH (21:40)
[2019-02-09] MEDS: cefTRIAXone 1 GM in D5W 55 ML IVPB SCH (21:40)
--- NOTE | 2019-02-09 23:35 | Internal Med Progress Note ---
Subjective Physician Name Inder Tao Attending Physician Inder Tao MD Current Medications Medications (Trade) Dose Ordered Sig/Harjinder Route PRN Reason Start Time Stop Time Status Last Admin Dose Admin Acetaminophen (Tylenol) 650 mg Q4H PRN ORAL Fever 02/09/19 17:58 03/11/19 17:57 Albuterol/ Ipratropium (Albuterol/ Ipratropium) 3 ml Q4H PRN HHN Shortness of Breath 02/09/19 17:58 02/14/19 17:57 Ceftriaxone Sodium 1 gm/ Dextrose 55 ml @ 110 mls/hr Q24H IVPB 02/09/19 20:00 02/15/19 19:59 02/09/19 21:40 Dextrose (Dextrose 50%) 25 ml Q30M PRN IV Hypoglycemia 02/09/19 17:58 03/11/19 17:57 Dextrose (Dextrose 50%) 50 ml Q30M PRN IV Hypoglycemia 02/09/19 18:15 03/10/19 15:44 Divalproex Sodium (Depakote Sprinkles) 125 mg Q12HR ORAL 02/09/19 21:00 03/10/19 20:59 02/09/19 21:40 Furosemide (Lasix) 40 mg EVERY 8 HOURS IV 02/09/19 22:00 03/10/19 21:59 Insulin Aspart (NovoLOG) BEFORE MEALS AND HS SUBQ 02/09/19 21:00 03/10/19 16:29 02/09/19 21:41 Ondansetron HCl (Zofran) 4 mg Q6H PRN IVP Nausea & Vomiting 02/09/19 17:58 03/11/19 17:57 Polyethylene Glycol (Miralax) 17 gm DAILYPRN PRN ORAL Constipation 02/09/19 17:59 03/11/19 17:58 Rivaroxaban (Xarelto) 15 mg DAILY ORAL 02/10/19 09:00 03/11/19 08:59 Sitagliptin Phosphate (Januvia) 50 mg Q24H ORAL 02/10/19 06:30 03/11/19 06:29 Temazepam (Restoril) 15 mg HSPRN PRN ORAL Insomnia 02/09/19 17:59 02/16/19 17:58 Trazodone HCl (Desyrel) 50 mg BEDTIME ORAL 02/09/19 21:00 03/10/19 20:59 02/09/19 21:40 Allergies: Coded Allergies: No Known Allergies (Unverified , 01/24/15) Subjective Awake, responsive , agitated, Hypotensive. Objective Last Vital Signs Date Time Temp Pulse Resp B/P (MAP) Pulse Ox O2 Delivery O2 Flow Rate FiO2 02/09/19 23:03 Room Air 02/09/19 20:41 103 129/55 (79) 02/09/19 19:51 18 97 21 02/09/19 19:30 98.4 02/08/19 11:49 15.0 Laboratory Tests Test 02/09/19 07:34 Sodium Level 142 MMOL/L (136-145) Potassium Level 4.1 MMOL/L (3.5-5.1) Chloride Level 104 MMOL/L (98-107) Carbon Dioxide Level 29 MMOL/L (21-32) Anion Gap 9 mmol/L (5-15) Blood Urea Nitrogen 60 mg/dL (7-18) H Creatinine 2.7 MG/DL (0.55-1.30) H Estimat Glomerular Filtration Rate mL/min (>60) Glucose Level 139 MG/DL (74-106) H Calcium Level 9.2 MG/DL (8.5-10.1) Phosphorus Level 4.2 MG/DL (2.5-4.9) Magnesium Level 2.6 MG/DL (1.8-2.4) H Troponin I 0.082 ng/mL (0.000-0.056) Pro-B-Type Natriuretic Peptide 94119 pg/mL (0-125) H Cholesterol Level 123 MG/DL (< 200) Microbiology Date/Time Source Procedure Growth Status 02/08/19 13:40 Urine,Clean Catch Urine Culture - Preliminary Gram Negative Bacillus 1 Resulted Intake and Output 02/08/19 02/09/19 18:59 06:59 Intake Total 60 ml 0 ml Output Total 100 ml Balance -40 ml 0 ml Intake Oral 60 ml 0 ml Output Urine Total 100 ml # Voids 2 Objective GENERAL: The patient is awake, responsive, in no acute distress, agitated. HEAD AND NECK: Pupils are equal and reactive to light. Extraocular movements intact. Left eye has cataract. Neck was supple. Positive JVD. LUNGS: Good air entry. No wheezing or rales. Decreased air at bases. HEART: S1, S2. Irregular, Distant heart sounds. No murmur or gallops. ABDOMEN: Soft, nondistended, nontender, mildly obese. EXTREMITIES: No cyanosis, clubbing, or edema. NEUROLOGIC: Cranial nerves II through XII grossly intact. Motor is 5/5 in all extremities. RECTAL: Refused and deferred. GENITOURINARY: Refused and deferred. Assessment/Plan Assessment/Plan ASSESSMENT: 1. Acute CHF exacerbation with diastolic dysfunction. 2. Pulmonary edema. 3. Acute kidney injury and chronic renal insufficiency. 4. Hypertension. 5. Dyslipidemia. 6. Diabetes type 2. 7. Advanced Alzheimer dementia. 8. Osteoarthritis. 9. Atrial flutter with left bundle-branch block. PLAN: Transfer from telemetry to medica; floor. monitor laboratory including cardiac enzymes. Code status is as per POLST in the chart, DNR. Dr. Hernandez, Cardiology Electrophysiology consultation Dr. Cooper, Pulmonary/Critical Care. hold Lasix due to low BP. 2D Echo. Inder Tao MD Feb 09, 2019 23:35
[2019-02-10] VITALS (8 sets, daily range): BP systolic 83–119; BP diastolic 46–62
[2019-02-10] MEDS: sitaGLIPtin 50mg tab ORAL SCH (06:03)
[2019-02-10] MEDS: NovoLOG Insulin Flexpen SUBQ SCH ×4 (06:04→21:09)
[2019-02-10 06:17] LABS: BASOPHILS % (AUTO) 1.2 % (0.0-2.0); EOSINOPHILS % (AUTO) 1.9 % (0.0-3.0); HEMATOCRIT 31.4 % (37.0-47.0); HEMOGLOBIN 9.9 G/DL (12.0-16.0); LYMPHOCYTES % (AUTO) 19.1 % (20.0-45.0); MEAN CORPUSCULAR VOLUME 90 FL (80-99); NEUTROPHILS % (AUTO) 70.7 % (45.0-75.0); PLATELET COUNT 171 K/UL (150-450); RED BLOOD COUNT 3.49 M/UL (4.20-5.40); RED CELL DISTRIBUTION WIDTH 14.7 % (11.6-14.8); WHITE BLOOD COUNT 8.2 K/UL (4.8-10.8)
[2019-02-10 06:34] LABS: ALANINE AMINOTRANSFERASE 8 U/L (12-78); ALBUMIN 2.7 G/DL (3.4-5.0); ALBUMIN/GLOBULIN RATIO 0.8 (1.0-2.7); ALKALINE PHOSPHATASE 51 U/L (46-116); ANION GAP 10 mmol/L (5-15); ASPARTATE AMINO TRANSFERASE 13 U/L (15-37); BILIRUBIN,TOTAL 0.5 MG/DL (0.2-1.0); BLOOD UREA NITROGEN 61 mg/dL (7-18); CALCIUM 8.8 MG/DL (8.5-10.1); CARBON DIOXIDE 27 MMOL/L (21-32); CHLORIDE 108 MMOL/L (98-107); CREATININE 2.8 MG/DL (0.55-1.30); PHOSPHORUS 4.7 MG/DL (2.5-4.9); POTASSIUM 4.2 MMOL/L (3.5-5.1); SODIUM 145 MMOL/L (136-145)
--- NOTE | 2019-02-10 07:20 | NUR ---
NURSE NOTES: Received call from lab, patient's troponin 0.108. Called and left message for Dr. Hernandez, awaiting response.
--- NOTE | 2019-02-10 07:30 | NUR ---
NURSE NOTES: Received pt from CLAUDIA LIRA. Pt is nonverbal x1. pt is in RA, No SOB or acute respiratory distress noted. pt has intact iv access R wrist 24g SL. All needs attended, bed is locked and is in the lowest position. call light within easy reach. will continue to monitor.
--- NOTE | 2019-02-10 07:40 | NUR ---
HAND-OFF: Report given to Debora Apodaca RN.
--- NOTE | 2019-02-10 08:52 | NUR ---
NURSE NOTES: RN called Dr Aiken regarding troponin and left massage, called back and ordered stat EKG and no further troponin, noted and carried out. will continue to monitor.
[2019-02-10] MEDS: Depakote 125mg Sprinkles ORAL SCH ×2 (09:01→21:00)
[2019-02-10] MEDS: Xarelto 15mg tab ORAL SCH (09:02)
--- NOTE | 2019-02-10 11:00 | NUR ---
NURSE NOTES: called Dr prajapati left massage regarding blodd culture positive. waiting to call back. will continue to monitor.
--- NOTE | 2019-02-10 11:52 | NUR ---
NURSE NOTES: Dr CARRINGTON is notified about EKG result, no new order to RN. Will continue to monitor.
--- NOTE | 2019-02-10 12:11 | NUR ---
NURSE NOTES: Dr prajapati visited pt and is notified about BP 86/61, HR 108, troponin and positive blood culture. no new order to RN. Will continue to monitor.
--- NOTE | 2019-02-10 12:55 | Pulmonology Progress Note ---
Assessment/Plan Problems: (1) Acute pulmonary edema (2) Acute respiratory failure (3) CHF (congestive heart failure) (4) UTI (lower urinary tract infection) (5) Diabetes mellitus Assessment/Plan BP was lower this morning, got NS looks better check urine cultures iv abx as per ID sliding scale diabetic diet. d/w Daughter and daughter in law, I strongly recommended hospice care upon discharge. Pt has EF of 25 with severe renal insufficiency, pulmonary edema. Pt drops with use of lasix. difficult to titrate all of her meds and families expectations. Subjective ROS Limited/Unobtainable: No Constitutional: Reports: no symptoms HEENT: Repors: no symptoms Allergies: Coded Allergies: No Known Allergies (Unverified , 01/24/15) Objective Last 24 Hour Vital Signs Date Time Temp Pulse Resp B/P (MAP) Pulse Ox O2 Delivery O2 Flow Rate FiO2 02/10/19 12:00 98.3 108 19 86/61 (69) 94 02/10/19 09:31 98.5 02/10/19 09:00 Room Air 02/10/19 08:00 98.5 77 18 93/54 (67) 99 02/10/19 07:20 96 21 95 Room Air 21 02/10/19 05:55 93 106/51 (69) 02/10/19 05:40 108 83/46 (58) 02/10/19 04:26 98.8 105 17 112/60 (77) 97 02/10/19 00:27 98.1 108 17 102/55 (71) 97 02/09/19 23:03 Room Air 02/09/19 20:41 103 129/55 (79) 02/09/19 19:51 101 18 97 Room Air 21 02/09/19 19:45 77/48 (58) 02/09/19 19:30 98.4 109 17 88/43 (58) 97 02/09/19 16:00 87 02/09/19 16:00 98.0 107 20 119/64 (82) 96 Intake and Output 02/09/19 02/10/19 19:00 07:00 Intake Total 55 ml Balance 55 ml IV Total 55 ml # Voids 2 2 # Bowel Movements 1 General Appearance: WD/WN HEENT: normocephalic, atraumatic Respiratory/Chest: chest wall non-tender, normal breath sounds Breasts: no masses Cardiovascular: normal peripheral pulses Abdomen: normal bowel sounds, no organomegaly Genitourinary: normal external genitalia Skin: no rash Microbiology Date/Time Source Procedure Growth Status 02/08/19 12:20 Blood Blood Culture - Preliminary Resulted 02/08/19 12:20 Blood Blood Culture - Preliminary Resulted 02/08/19 13:40 Urine,Clean Catch Urine Culture - Preliminary Escherichia Coli Gram Negative Bacillus 1 Resulted 02/08/19 13:40 Rectal Mucosa VRE Culture - Final NO VANCOMYCIN RESISTANT ENTEROCOCCUS ... Complete 02/08/19 13:40 Rectal Mucosa - Final NO CARBAPENEM-RESISTANT ENTEROBACTERI... Complete Laboratory Tests 02/10/19 05:30: White Blood Count 8.2, Red Blood Count 3.49L, Hemoglobin 9.9L, Hematocrit 31.4L , Mean Corpuscular Volume 90, Mean Corpuscular Hemoglobin 28.4, Mean Corpuscular Hemoglobin Concent 31.6L, Red Cell Distribution Width 14.7, Platelet Count 171, Mean Platelet Volume 9.1, Neutrophils (%) (Auto) 70.7, Lymphocytes (%) (Auto) 19.1L, Monocytes (%) (Auto) 7.0, Eosinophils (%) (Auto) 1.9, Basophils (%) (Auto) 1.2, Sodium Level 145, Potassium Level 4.2, Chloride Level 108H, Carbon Dioxide Level 27, Anion Gap 10, Blood Urea Nitrogen 61H, Creatinine 2.8H, Estimat Glomerular Filtration Rate , Glucose Level 135H, Calcium Level 8.8, Phosphorus Level 4.7, Magnesium Level 2.6H, Total Bilirubin 0.5, Aspartate Amino Transf (AST/SGOT) 13L, Alanine Aminotransferase (ALT/SGPT) 8L, Alkaline Phosphatase 51, Troponin I 0.108H, Total Protein 6.2L, Albumin 2.7L , Globulin 3.5, Albumin/Globulin Ratio 0.8L Current Medications Medications (Trade) Dose Ordered Sig/Harjinder Route PRN Reason Start Time Stop Time Status Last Admin Dose Admin Acetaminophen (Tylenol) 650 mg Q4H PRN ORAL Fever 02/09/19 17:58 03/11/19 17:57 02/10/19 09:01 Albuterol/ Ipratropium (Albuterol/ Ipratropium) 3 ml Q4H PRN HHN Shortness of Breath 02/09/19 17:58 02/14/19 17:57 Ceftriaxone Sodium 1 gm/ Dextrose 55 ml @ 110 mls/hr Q24H IVPB 02/09/19 20:00 02/15/19 19:59 02/09/19 21:40 Dextrose (Dextrose 50%) 25 ml Q30M PRN IV Hypoglycemia 02/09/19 17:58 03/11/19 17:57 Dextrose (Dextrose 50%) 50 ml Q30M PRN IV Hypoglycemia 02/09/19 18:15 03/10/19 15:44 Divalproex Sodium (Depakote Sprinkles) 125 mg Q12HR ORAL 02/09/19 21:00 03/10/19 20:59 02/10/19 09:01 Furosemide (Lasix) 40 mg EVERY 8 HOURS IV 02/09/19 22:00 03/10/19 21:59 Insulin Aspart (NovoLOG) BEFORE MEALS AND HS SUBQ 02/09/19 21:00 03/10/19 16:29 02/10/19 12:07 Ondansetron HCl (Zofran) 4 mg Q6H PRN IVP Nausea & Vomiting 02/09/19 17:58 03/11/19 17:57 Polyethylene Glycol (Miralax) 17 gm DAILYPRN PRN ORAL Constipation 02/09/19 17:59 03/11/19 17:58 Rivaroxaban (Xarelto) 15 mg DAILY ORAL 02/10/19 09:00 03/11/19 08:59 02/10/19 09:02 Sitagliptin Phosphate (Januvia) 50 mg Q24H ORAL 02/10/19 06:30 03/11/19 06:29 02/10/19 06:03 Temazepam (Restoril) 15 mg HSPRN PRN ORAL Insomnia 02/09/19 17:59 02/16/19 17:58 Trazodone HCl (Desyrel) 50 mg BEDTIME ORAL 02/09/19 21:00 03/10/19 20:59 02/09/19 21:40 Anastasia Cooper MD Feb 10, 2019 12:55
--- NOTE | 2019-02-10 14:04 | Diagnostic Imaging Report ---
APPROVED REPORT CPT Code: 30874 BILATERAL: Imaging reveals a patent deep venous system bilaterally. There is no evidence of thrombus within the common femoral, superficial femoral, popliteal or tibial segments. The greater saphenous veins are within normal limits. Doppler indicates normal spontaneous flow within these segments.
--- NOTE | 2019-02-10 14:31 | Cardiac Electrophysiology PN ---
Assessment/Plan Assessment/Plan 1. Elevated troponin of 0.104, 0.11,0.08, likely due to renal failure with creatinine of 3. The patient has underlying left bundle-branch block. DNR and DNI. Treat medically. No CP. BP 90s avoid betablockers No further Troponin levels 2. Atrial flutter, rate is currently controlled off any AV erfain blocking agents and is on anticoagulation with Xarelto. 3. CHF EF 25% with BNP of 9000 and also a creatinine of 3. DC iv Lasix for low BP 3. Hypertension. Continue current heart failure medications. 4. Diabetes. 5. Dementia. 6. Renal failure. 7. DNR,DNI DW RN Subjective Subjective In atrial fib with controlled rate. DNR and DNI . Nonverbal.BP dropped to 86 Objective Last 24 Hour Vital Signs Date Time Temp Pulse Resp B/P (MAP) Pulse Ox O2 Delivery O2 Flow Rate FiO2 02/10/19 12:00 98.3 108 19 86/61 (69) 94 02/10/19 09:31 98.5 02/10/19 09:00 Room Air 02/10/19 08:00 98.5 77 18 93/54 (67) 99 02/10/19 07:20 96 21 95 Room Air 21 02/10/19 05:55 93 106/51 (69) 02/10/19 05:40 108 83/46 (58) 02/10/19 04:26 98.8 105 17 112/60 (77) 97 02/10/19 00:27 98.1 108 17 102/55 (71) 97 02/09/19 23:03 Room Air 02/09/19 20:41 103 129/55 (79) 02/09/19 19:51 101 18 97 Room Air 21 02/09/19 19:45 77/48 (58) 02/09/19 19:30 98.4 109 17 88/43 (58) 97 02/09/19 16:00 87 02/09/19 16:00 98.0 107 20 119/64 (82) 96 Intake and Output 02/09/19 02/10/19 19:00 07:00 Intake Total 55 ml Balance 55 ml IV Total 55 ml # Voids 2 2 # Bowel Movements 1 Laboratory Tests Test 02/10/19 05:30 White Blood Count 8.2 K/UL (4.8-10.8) Red Blood Count 3.49 M/UL (4.20-5.40) L Hemoglobin 9.9 G/DL (12.0-16.0) L Hematocrit 31.4 % (37.0-47.0) L Mean Corpuscular Volume 90 FL (80-99) Mean Corpuscular Hemoglobin 28.4 PG (27.0-31.0) Mean Corpuscular Hemoglobin Concent 31.6 G/DL (32.0-36.0) L Red Cell Distribution Width 14.7 % (11.6-14.8) Platelet Count 171 K/UL (150-450) Mean Platelet Volume 9.1 FL (6.5-10.1) Neutrophils (%) (Auto) 70.7 % (45.0-75.0) Lymphocytes (%) (Auto) 19.1 % (20.0-45.0) L Monocytes (%) (Auto) 7.0 % (1.0-10.0) Eosinophils (%) (Auto) 1.9 % (0.0-3.0) Basophils (%) (Auto) 1.2 % (0.0-2.0) Sodium Level 145 MMOL/L (136-145) Potassium Level 4.2 MMOL/L (3.5-5.1) Chloride Level 108 MMOL/L (98-107) H Carbon Dioxide Level 27 MMOL/L (21-32) Anion Gap 10 mmol/L (5-15) Blood Urea Nitrogen 61 mg/dL (7-18) H Creatinine 2.8 MG/DL (0.55-1.30) H Estimat Glomerular Filtration Rate mL/min (>60) Glucose Level 135 MG/DL (74-106) H Calcium Level 8.8 MG/DL (8.5-10.1) Phosphorus Level 4.7 MG/DL (2.5-4.9) Magnesium Level 2.6 MG/DL (1.8-2.4) H Total Bilirubin 0.5 MG/DL (0.2-1.0) Aspartate Amino Transf (AST/SGOT) 13 U/L (15-37) L Alanine Aminotransferase (ALT/SGPT) 8 U/L (12-78) L Alkaline Phosphatase 51 U/L (46-116) Troponin I 0.108 ng/mL (0.000-0.056) Total Protein 6.2 G/DL (6.4-8.2) L Albumin 2.7 G/DL (3.4-5.0) L Globulin 3.5 g/dL Albumin/Globulin Ratio 0.8 (1.0-2.7) L Microbiology Date/Time Source Procedure Growth Status 02/08/19 12:20 Blood Blood Culture - Preliminary Resulted 02/08/19 12:20 Blood Blood Culture - Preliminary Resulted 02/08/19 13:40 Urine,Clean Catch Urine Culture - Preliminary Escherichia Coli Gram Negative Bacillus 1 Resulted 02/08/19 13:40 Rectal Mucosa VRE Culture - Final NO VANCOMYCIN RESISTANT ENTEROCOCCUS ... Complete 02/08/19 13:40 Rectal Mucosa - Final NO CARBAPENEM-RESISTANT ENTEROBACTERI... Complete Objective HEAD AND NECK: Shows no jugular venous distention. LUNGS: Decreased breath sounds. CARDIOVASCULAR: Shows irregular S1 and S2 with no gallop. ABDOMEN: Soft. EXTREMITIES: A 1+ pitting edema. Valeriy Hernandez MD Feb 10, 2019 14:31
--- NOTE | 2019-02-10 15:17 | NUR ---
NURSE NOTES: Dr CARRINGTON visited pt and is aware about BP and HR, no new order to RN. Will continue to monitor
[2019-02-10] MEDS ORDERED: Vancomycin 1.25gm Premix IVPB ONE (18:30)
--- NOTE | 2019-02-10 18:49 | Internal Med Progress Note ---
Subjective Physician Name Inder Tao Attending Physician Inder Tao MD Current Medications Medications (Trade) Dose Ordered Sig/Harjinder Route PRN Reason Start Time Stop Time Status Last Admin Dose Admin Acetaminophen (Tylenol) 650 mg Q4H PRN ORAL Fever 02/09/19 17:58 03/11/19 17:57 02/10/19 09:01 Albuterol/ Ipratropium (Albuterol/ Ipratropium) 3 ml Q4H PRN HHN Shortness of Breath 02/09/19 17:58 02/14/19 17:57 Ceftriaxone Sodium 1 gm/ Dextrose 55 ml @ 110 mls/hr Q24H IVPB 02/09/19 20:00 02/15/19 19:59 02/09/19 21:40 Dextrose (Dextrose 50%) 25 ml Q30M PRN IV Hypoglycemia 02/09/19 17:58 03/11/19 17:57 Dextrose (Dextrose 50%) 50 ml Q30M PRN IV Hypoglycemia 02/09/19 18:15 03/10/19 15:44 Divalproex Sodium (Depakote Sprinkles) 125 mg Q12HR ORAL 02/09/19 21:00 03/10/19 20:59 02/10/19 09:01 Insulin Aspart (NovoLOG) BEFORE MEALS AND HS SUBQ 02/09/19 21:00 03/10/19 16:29 02/10/19 16:51 Ondansetron HCl (Zofran) 4 mg Q6H PRN IVP Nausea & Vomiting 02/09/19 17:58 03/11/19 17:57 Polyethylene Glycol (Miralax) 17 gm DAILYPRN PRN ORAL Constipation 02/09/19 17:59 03/11/19 17:58 Rivaroxaban (Xarelto) 15 mg DAILY ORAL 02/10/19 09:00 03/11/19 08:59 02/10/19 09:02 Sitagliptin Phosphate (Januvia) 50 mg Q24H ORAL 02/10/19 06:30 03/11/19 06:29 02/10/19 06:03 Temazepam (Restoril) 15 mg HSPRN PRN ORAL Insomnia 02/09/19 17:59 02/16/19 17:58 Trazodone HCl (Desyrel) 50 mg BEDTIME ORAL 02/09/19 21:00 03/10/19 20:59 02/09/19 21:40 Vancomycin HCl (Vanco rx to dose) 1 ea DAILY PRN MISC . 02/10/19 17:45 03/12/19 17:44 Vancomycin HCl/ Dextrose 275 ml @ 183.333 mls/hr ONCE ONCE IVPB 02/10/19 18:30 02/10/19 19:59 02/10/19 18:40 Allergies: Coded Allergies: No Known Allergies (Unverified , 01/24/15) Subjective Awake, responsive , less agitated, renal function improving. Objective Last Vital Signs Date Time Temp Pulse Resp B/P (MAP) Pulse Ox O2 Delivery O2 Flow Rate FiO2 02/10/19 16:00 98.5 105 18 119/62 (81) 96 02/10/19 09:00 Room Air 02/10/19 07:20 21 02/08/19 11:49 15.0 Laboratory Tests Test 02/10/19 05:30 White Blood Count 8.2 K/UL (4.8-10.8) Red Blood Count 3.49 M/UL (4.20-5.40) L Hemoglobin 9.9 G/DL (12.0-16.0) L Hematocrit 31.4 % (37.0-47.0) L Mean Corpuscular Volume 90 FL (80-99) Mean Corpuscular Hemoglobin 28.4 PG (27.0-31.0) Mean Corpuscular Hemoglobin Concent 31.6 G/DL (32.0-36.0) L Red Cell Distribution Width 14.7 % (11.6-14.8) Platelet Count 171 K/UL (150-450) Mean Platelet Volume 9.1 FL (6.5-10.1) Neutrophils (%) (Auto) 70.7 % (45.0-75.0) Lymphocytes (%) (Auto) 19.1 % (20.0-45.0) L Monocytes (%) (Auto) 7.0 % (1.0-10.0) Eosinophils (%) (Auto) 1.9 % (0.0-3.0) Basophils (%) (Auto) 1.2 % (0.0-2.0) Sodium Level 145 MMOL/L (136-145) Potassium Level 4.2 MMOL/L (3.5-5.1) Chloride Level 108 MMOL/L (98-107) H Carbon Dioxide Level 27 MMOL/L (21-32) Anion Gap 10 mmol/L (5-15) Blood Urea Nitrogen 61 mg/dL (7-18) H Creatinine 2.8 MG/DL (0.55-1.30) H Estimat Glomerular Filtration Rate mL/min (>60) Glucose Level 135 MG/DL (74-106) H Calcium Level 8.8 MG/DL (8.5-10.1) Phosphorus Level 4.7 MG/DL (2.5-4.9) Magnesium Level 2.6 MG/DL (1.8-2.4) H Total Bilirubin 0.5 MG/DL (0.2-1.0) Aspartate Amino Transf (AST/SGOT) 13 U/L (15-37) L Alanine Aminotransferase (ALT/SGPT) 8 U/L (12-78) L Alkaline Phosphatase 51 U/L (46-116) Troponin I 0.108 ng/mL (0.000-0.056) Total Protein 6.2 G/DL (6.4-8.2) L Albumin 2.7 G/DL (3.4-5.0) L Globulin 3.5 g/dL Albumin/Globulin Ratio 0.8 (1.0-2.7) L Microbiology Date/Time Source Procedure Growth Status 02/08/19 12:20 Blood Blood Culture - Preliminary Resulted 02/08/19 12:20 Blood Blood Culture - Preliminary Resulted 02/08/19 13:40 Urine,Clean Catch Urine Culture - Preliminary Escherichia Coli Gram Negative Bacillus 1 Resulted 02/08/19 13:40 Rectal Mucosa VRE Culture - Final NO VANCOMYCIN RESISTANT ENTEROCOCCUS ... Complete 02/08/19 13:40 Rectal Mucosa - Final NO CARBAPENEM-RESISTANT ENTEROBACTERI... Complete Intake and Output 02/09/19 02/10/19 19:00 07:00 Intake Total 55 ml Balance 55 ml IV Total 55 ml # Voids 2 2 # Bowel Movements 1 Objective GENERAL: The patient is awake, responsive, in no acute distress, less agitated. HEAD AND NECK: Pupils are equal and reactive to light. Extraocular movements intact. Left eye has cataract. Neck was supple. Positive JVD. LUNGS: Good air entry. No wheezing or rales. Decreased air at bases. HEART: S1, S2. Irregular, Distant heart sounds. No murmur or gallops. ABDOMEN: Soft, nondistended, nontender, mildly obese. EXTREMITIES: No cyanosis, clubbing, or edema. NEUROLOGIC: Cranial nerves II through XII grossly intact. Motor is 5/5 in all extremities. RECTAL: Refused and deferred. GENITOURINARY: Refused and deferred. Assessment/Plan Assessment/Plan ASSESSMENT: 1. Acute CHF exacerbation with diastolic dysfunction. 2. Acute Pulmonary edema. 3. Acute kidney injury and chronic renal insufficiency. 4. Hypertension. 5. Dyslipidemia. 6. Diabetes type 2. 7. Advanced Alzheimer dementia. 8. Osteoarthritis. 9. Atrial flutter with left bundle-branch block. 10. E. coli UTI. 11. GPC bacteremia. PLAN: in medical floor. monitor laboratory including cardiac enzymes. Code status is as per POLST in the chart, DNR. Dr. Hernandez, Cardiology Electrophysiology consultation Dr. Cooper, Pulmonary/Critical Care. Abx: Vanco and Dee IV Poor prognosis discuss with daughter, consider hospice care. Inder Tao MD Feb 10, 2019 18:49
--- NOTE | 2019-02-10 19:02 | NUR ---
CASE MANAGEMENT: REVIEW SI: ACUTE CHF EXACERBATION . E-COLI UTI T 98.5 HR 108 RR 19 BP 86/61 SAT 94% ROOM AIR BUN 61 CR 2.8 MAG 2.6 AST 13 ALT 8 TROPONIN I 0.108 IS: VANCO IV X1 CEFTRIAXONE IV Q24HR XARELTO PO QD ALBUTEROL HHN Q4HR PRN MED/SURG STATUS DCP: PATIENT IS FROM HOME
--- NOTE | 2019-02-10 19:40 | NUR ---
NURSE NOTES: Received patient from CLAUDIA Cazares. Patient is sleeping. Bed in lowest position, 3 side rails up and padded for seizure precaution. Call light in reach. Will continue to monitor.
--- NOTE | 2019-02-10 19:45 | NUR ---
HAND-OFF: Report given to CLAUDIA KELLEY.
[2019-02-10] MEDS: cefTRIAXone 1 GM in D5W 55 ML IVPB SCH (20:52)
[2019-02-10] MEDS: TraZODone 50mg tab ORAL SCH (21:00)
[2019-02-11 04:10] VITALS: BP 90/47
[2019-02-11] MEDS: sitaGLIPtin 50mg tab ORAL SCH (06:19)
[2019-02-11] MEDS: NovoLOG Insulin Flexpen SUBQ SCH ×4 (06:20→20:47)
--- NOTE | 2019-02-11 07:30 | NUR ---
NURSE NOTES: Received pt from RN ALLIE/TRACE. Pt is nonverbal x1. pt is in RA, No SOB or acute respiratory distress noted. pt has intact iv access R wrist 24g SL. All needs attended, bed is locked and is in the lowest position. call light within easy reach. will continue to darnell
--- NOTE | 2019-02-11 07:35 | NUR ---
HAND-OFF: Report given to CLAUDIA Cazares.
[2019-02-11 08:00] VITALS: BP 86/58
[2019-02-11] MEDS: Xarelto 15mg tab ORAL SCH (08:47)
[2019-02-11] MEDS: Depakote 125mg Sprinkles ORAL SCH ×2 (08:47→20:45)
--- NOTE | 2019-02-11 11:51 | Pulmonology Progress Note ---
Assessment/Plan Problems: (1) Acute pulmonary edema (2) Acute respiratory failure (3) CHF (congestive heart failure) (4) UTI (lower urinary tract infection) (5) Diabetes mellitus Assessment/Plan heart rate around 100, by borderline normal no new complains looks better check urine cultures iv abx as per ID sliding scale diabetic diet. Subjective ROS Limited/Unobtainable: No Constitutional: Reports: no symptoms HEENT: Repors: no symptoms Respiratory: Reports: no symptoms Allergies: Coded Allergies: No Known Allergies (Unverified , 01/24/15) Objective Last 24 Hour Vital Signs Date Time Temp Pulse Resp B/P (MAP) Pulse Ox O2 Delivery O2 Flow Rate FiO2 02/11/19 09:00 Room Air 02/11/19 08:00 98.2 113 20 86/58 (67) 98 02/11/19 04:10 97.2 111 20 90/47 (61) 95 02/10/19 21:00 Room Air 02/10/19 20:16 79 18 95 Room Air 21 02/10/19 20:16 95 Room Air 21 02/10/19 20:00 98.5 110 18 92/51 (65) 97 02/10/19 16:00 98.5 105 18 119/62 (81) 96 02/10/19 12:00 98.3 108 19 86/61 (69) 94 Intake and Output 02/10/19 02/11/19 19:00 07:00 Intake Total 236 ml 356.333 ml Output Total 100 ml Balance 236 ml 256.333 ml Intake Oral 236 ml 118 ml IV Total 238.333 ml Output Urine Total 100 ml # Voids 2 # Bowel Movements 1 General Appearance: cachetic HEENT: normocephalic, anicteric Respiratory/Chest: chest wall non-tender, normal breath sounds Breasts: no masses Cardiovascular: normal rate Abdomen: normal bowel sounds, soft, non tender Genitourinary: normal external genitalia Extremities: no clubbing Skin: no rash Microbiology Date/Time Source Procedure Growth Status 02/08/19 12:20 Blood Blood Culture - Preliminary Gram Positive Cocci Resulted 02/08/19 12:20 Blood Blood Culture - Preliminary Gram Positive Cocci Resulted 02/08/19 13:40 Nasal Nares MRSA Culture - Final Staphylococcus Aureus - Mrsa Complete 02/08/19 13:40 Urine,Clean Catch Urine Culture - Final Escherichia Coli Pseudomonas Aeruginosa Complete 02/08/19 13:40 Rectal Mucosa VRE Culture - Final NO VANCOMYCIN RESISTANT ENTEROCOCCUS ... Complete 02/08/19 13:40 Rectal Mucosa - Final NO CARBAPENEM-RESISTANT ENTEROBACTERI... Complete Current Medications Medications (Trade) Dose Ordered Sig/Harjinder Route PRN Reason Start Time Stop Time Status Last Admin Dose Admin Acetaminophen (Tylenol) 650 mg Q4H PRN ORAL Fever 02/09/19 17:58 03/11/19 17:57 02/10/19 09:01 Albuterol/ Ipratropium (Albuterol/ Ipratropium) 3 ml Q4H PRN HHN Shortness of Breath 02/09/19 17:58 02/14/19 17:57 Ceftriaxone Sodium 1 gm/ Dextrose 55 ml @ 110 mls/hr Q24H IVPB 02/09/19 20:00 02/15/19 19:59 02/10/19 20:52 Dextrose (Dextrose 50%) 25 ml Q30M PRN IV Hypoglycemia 02/09/19 17:58 03/11/19 17:57 Dextrose (Dextrose 50%) 50 ml Q30M PRN IV Hypoglycemia 02/09/19 18:15 03/10/19 15:44 Divalproex Sodium (Depakote Sprinkles) 125 mg Q12HR ORAL 02/09/19 21:00 03/10/19 20:59 02/11/19 08:47 Insulin Aspart (NovoLOG) BEFORE MEALS AND HS SUBQ 02/09/19 21:00 03/10/19 16:29 02/11/19 06:20 Ondansetron HCl (Zofran) 4 mg Q6H PRN IVP Nausea & Vomiting 02/09/19 17:58 03/11/19 17:57 Polyethylene Glycol (Miralax) 17 gm DAILYPRN PRN ORAL Constipation 02/09/19 17:59 03/11/19 17:58 Rivaroxaban (Xarelto) 15 mg DAILY ORAL 02/10/19 09:00 03/11/19 08:59 02/11/19 08:47 Sitagliptin Phosphate (Januvia) 50 mg Q24H ORAL 02/10/19 06:30 03/11/19 06:29 02/10/19 06:03 Temazepam (Restoril) 15 mg HSPRN PRN ORAL Insomnia 02/09/19 17:59 02/16/19 17:58 Trazodone HCl (Desyrel) 50 mg BEDTIME ORAL 02/09/19 21:00 03/10/19 20:59 02/09/19 21:40 Vancomycin HCl (Vanco rx to dose) 1 ea DAILY PRN MISC . 02/10/19 17:45 03/12/19 17:44 Anastasia Cooper MD Feb 11, 2019 11:51
[2019-02-11 12:00] VITALS: BP 108/89
--- NOTE | 2019-02-11 12:00 | NUR ---
NURSE NOTES: Dr WHITE visited pt and he is notified about tachy cardia and hypotension, no new order to RN, will continue to monitor.
[2019-02-11 16:00] VITALS: BP 97/54
--- NOTE | 2019-02-11 17:00 | NUR ---
NURSE NOTES: Dr lindsey visited pt and notified about HR and BP, no new order to RN. Will continue to monitor.
--- NOTE | 2019-02-11 17:07 | Cardiac Electrophysiology PN ---
Assessment/Plan Assessment/Plan 1. Elevated troponin of 0.104, 0.11,0.08, likely due to renal failure with creatinine of 3. The patient has underlying left bundle-branch block. DNR and DNI. Treat medically. No CP. BP 90s avoid betablockers No further Troponin levels 2. Atrial flutter, Add Digoxin 0.125 daily and Xarelto.Dig level in am 3. CHF EF 25% with BNP of 9000 and also a creatinine of 3. Off iv Lasix for low BP 3. Hypertension. Continue current heart failure medications. 4. Diabetes. 5. Dementia. 6. Renal failure. 7. DNR,DNI DW RN and daughter Subjective Subjective In atrial fib but tachy today. DNR and DNI . Nonverbal. Daughter at bedside Objective Last 24 Hour Vital Signs Date Time Temp Pulse Resp B/P (MAP) Pulse Ox O2 Delivery O2 Flow Rate FiO2 02/11/19 16:00 98.5 110 20 97/54 (68) 97 02/11/19 12:00 98.6 118 20 108/89 (95) 97 02/11/19 09:00 Room Air 02/11/19 08:00 98.2 113 20 86/58 (67) 98 02/11/19 04:10 97.2 111 20 90/47 (61) 95 02/10/19 21:00 Room Air 02/10/19 20:16 79 18 95 Room Air 21 02/10/19 20:16 95 Room Air 21 02/10/19 20:00 98.5 110 18 92/51 (65) 97 Intake and Output 02/10/19 02/11/19 19:00 07:00 Intake Total 236 ml 356.333 ml Output Total 100 ml Balance 236 ml 256.333 ml Intake Oral 236 ml 118 ml IV Total 238.333 ml Output Urine Total 100 ml # Voids 2 # Bowel Movements 1 Objective HEAD AND NECK: Shows no jugular venous distention. LUNGS: Decreased breath sounds. CARDIOVASCULAR: Irregular S1 and S2 with no gallop. ABDOMEN: Soft. EXTREMITIES: A 1+ pitting edema. Valeriy Hernandez MD Feb 11, 2019 17:07
--- NOTE | 2019-02-11 17:14 | Cardiac Electrophysiology PN ---
Assessment/Plan Assessment/Plan 1. Elevated troponin of 0.104, 0.11,0.08, likely due to renal failure with creatinine of 3. The patient has underlying left bundle-branch block. DNR and DNI. Treat medically. No CP. BP 90s avoid betablockers No further Troponin levels 2. Atrial flutter. Add Digoxin 0.125 daily and Xarelto.Dig level in am Had DCCV at [facility] 05/[address] Bautista 3. CHF EF 25% with BNP of 9000 and also a creatinine of 3. Off iv Lasix for low BP 4. Hypertension. Continue current heart failure medications. 5. 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 Usually FU Dr. Oconnor 6. Diabetes. 7. Renal failure. 8. DNR,DNI DW RN and daughter Subjective Subjective In atrial fib but tachy today. DNR and DNI . Nonverbal. Daughter at bedside. Objective Last 24 Hour Vital Signs Date Time Temp Pulse Resp B/P (MAP) Pulse Ox O2 Delivery O2 Flow Rate FiO2 02/11/19 16:00 98.5 110 20 97/54 (68) 97 02/11/19 12:00 98.6 118 20 108/89 (95) 97 02/11/19 09:00 Room Air 02/11/19 08:00 98.2 113 20 86/58 (67) 98 02/11/19 04:10 97.2 111 20 90/47 (61) 95 02/10/19 21:00 Room Air 02/10/19 20:16 79 18 95 Room Air 21 02/10/19 20:16 95 Room Air 21 02/10/19 20:00 98.5 110 18 92/51 (65) 97 Intake and Output 02/10/19 02/11/19 19:00 07:00 Intake Total 236 ml 356.333 ml Output Total 100 ml Balance 236 ml 256.333 ml Intake Oral 236 ml 118 ml IV Total 238.333 ml Output Urine Total 100 ml # Voids 2 # Bowel Movements 1 Objective HEAD AND NECK: Shows no jugular venous distention. LUNGS: Decreased breath sounds. CARDIOVASCULAR: Irregular S1 and S2 with no gallop. ABDOMEN: Soft. EXTREMITIES: A 1+ pitting edema. Valeriy Hernandez MD Feb 11, 2019 17:13
--- NOTE | 2019-02-11 19:30 | NUR ---
HAND-OFF: Report given to ALLIE TAYLOR .
--- NOTE | 2019-02-11 19:34 | NUR ---
NURSE NOTES: Received patient awake,confused,resting in bed comfortably,kept clean and dry.
[2019-02-11] MEDS: cefTRIAXone 1 GM in D5W 55 ML IVPB SCH (19:59)
[2019-02-11 20:00] VITALS: BP 126/89
[2019-02-11] MEDS: TraZODone 50mg tab ORAL SCH (20:44)
--- NOTE | 2019-02-12 | Internal Med Progress Note ---
Subjective Physician Name Inder Tao Attending Physician Inder Tao MD Current Medications Medications (Trade) Dose Ordered Sig/Harjinder Route PRN Reason Start Time Stop Time Status Last Admin Dose Admin Acetaminophen (Tylenol) 650 mg Q4H PRN ORAL Fever 02/09/19 17:58 03/11/19 17:57 02/10/19 09:01 Albuterol/ Ipratropium (Albuterol/ Ipratropium) 3 ml Q4H PRN HHN Shortness of Breath 02/09/19 17:58 02/14/19 17:57 Ceftriaxone Sodium 1 gm/ Dextrose 55 ml @ 110 mls/hr Q24H IVPB 02/09/19 20:00 02/15/19 19:59 02/11/19 19:59 Dextrose (Dextrose 50%) 25 ml Q30M PRN IV Hypoglycemia 02/09/19 17:58 03/11/19 17:57 Dextrose (Dextrose 50%) 50 ml Q30M PRN IV Hypoglycemia 02/09/19 18:15 03/10/19 15:44 Digoxin (Lanoxin) 0.125 mg DAILY ORAL 02/12/19 09:00 03/14/19 08:59 Divalproex Sodium (Depakote Sprinkles) 125 mg Q12HR ORAL 02/09/19 21:00 03/10/19 20:59 02/11/19 20:45 Insulin Aspart (NovoLOG) BEFORE MEALS AND HS SUBQ 02/09/19 21:00 03/10/19 16:29 02/11/19 20:47 Ondansetron HCl (Zofran) 4 mg Q6H PRN IVP Nausea & Vomiting 02/09/19 17:58 03/11/19 17:57 Polyethylene Glycol (Miralax) 17 gm DAILYPRN PRN ORAL Constipation 02/09/19 17:59 03/11/19 17:58 Rivaroxaban (Xarelto) 15 mg DAILY ORAL 02/10/19 09:00 03/11/19 08:59 02/11/19 08:47 Sitagliptin Phosphate (Januvia) 50 mg Q24H ORAL 02/10/19 06:30 03/11/19 06:29 02/10/19 06:03 Temazepam (Restoril) 15 mg HSPRN PRN ORAL Insomnia 02/09/19 17:59 02/16/19 17:58 Trazodone HCl (Desyrel) 50 mg BEDTIME ORAL 02/09/19 21:00 03/10/19 20:59 02/11/19 20:44 Vancomycin HCl (Vanco rx to dose) 1 ea DAILY PRN MISC . 02/10/19 17:45 03/12/19 17:44 Allergies: Coded Allergies: No Known Allergies (Unverified , 01/24/15) Subjective Awake, responsive , less agitated, renal function improving. Objective Last Vital Signs Date Time Temp Pulse Resp B/P (MAP) Pulse Ox O2 Delivery O2 Flow Rate FiO2 02/11/19 21:00 Room Air 02/11/19 20:00 98.5 110 18 126/89 (101) 94 02/11/19 19:46 21 02/08/19 11:49 15.0 Intake and Output 02/11/19 02/12/19 19:00 07:00 Intake Total 480 ml 55 ml Balance 480 ml 55 ml Intake Oral 480 ml IV Total 55 ml # Voids 2 Objective GENERAL: The patient is awake, responsive, in no acute distress, less agitated. HEAD AND NECK: Pupils are equal and reactive to light. Extraocular movements intact. Left eye has cataract. Neck was supple. Positive JVD. LUNGS: Good air entry. No wheezing or rales. Decreased air at bases. HEART: S1, S2. Irregular, Distant heart sounds. No murmur or gallops. ABDOMEN: Soft, nondistended, nontender, mildly obese. EXTREMITIES: No cyanosis, clubbing, or edema. NEUROLOGIC: Cranial nerves II through XII grossly intact. Motor is 5/5 in all extremities. RECTAL: Refused and deferred. GENITOURINARY: Refused and deferred. Assessment/Plan Assessment/Plan ASSESSMENT: 1. Acute CHF exacerbation with diastolic dysfunction. 2. Acute Pulmonary edema. 3. Acute kidney injury and chronic renal insufficiency. 4. Hypertension. 5. Dyslipidemia. 6. Diabetes type 2. 7. Advanced Alzheimer dementia. 8. Osteoarthritis. 9. Atrial flutter with left bundle-branch block. 10. E. coli UTI. 11. GPC bacteremia. PLAN: in medical floor. monitor laboratory including cardiac enzymes. Code status is as per POLST in the chart, DNR. Dr. Hernandez, Cardiology Electrophysiology consultation Dr. Zarrabi, Pulmonary/Critical Care. Abx: Conrad and Dee IV Poor prognosis discuss with daughter, consider hospice care. Inder Tao MD Feb 12, 2019 00:00
[2019-02-12 00:15] VITALS: BP 143/60
--- NOTE | 2019-02-12 00:47 | Internal Med Progress Note ---
Subjective Physician Name Inder Tao Attending Physician Inder Tao MD Current Medications Medications (Trade) Dose Ordered Sig/Harjinder Route PRN Reason Start Time Stop Time Status Last Admin Dose Admin Acetaminophen (Tylenol) 650 mg Q4H PRN ORAL Fever 02/09/19 17:58 03/11/19 17:57 02/10/19 09:01 Albuterol/ Ipratropium (Albuterol/ Ipratropium) 3 ml Q4H PRN HHN Shortness of Breath 02/09/19 17:58 02/14/19 17:57 Ceftriaxone Sodium 1 gm/ Dextrose 55 ml @ 110 mls/hr Q24H IVPB 02/09/19 20:00 02/15/19 19:59 02/11/19 19:59 Dextrose (Dextrose 50%) 25 ml Q30M PRN IV Hypoglycemia 02/09/19 17:58 03/11/19 17:57 Dextrose (Dextrose 50%) 50 ml Q30M PRN IV Hypoglycemia 02/09/19 18:15 03/10/19 15:44 Digoxin (Lanoxin) 0.125 mg DAILY ORAL 02/12/19 09:00 03/14/19 08:59 Divalproex Sodium (Depakote Sprinkles) 125 mg Q12HR ORAL 02/09/19 21:00 03/10/19 20:59 02/11/19 20:45 Insulin Aspart (NovoLOG) BEFORE MEALS AND HS SUBQ 02/09/19 21:00 03/10/19 16:29 02/11/19 20:47 Ondansetron HCl (Zofran) 4 mg Q6H PRN IVP Nausea & Vomiting 02/09/19 17:58 03/11/19 17:57 Polyethylene Glycol (Miralax) 17 gm DAILYPRN PRN ORAL Constipation 02/09/19 17:59 03/11/19 17:58 Rivaroxaban (Xarelto) 15 mg DAILY ORAL 02/10/19 09:00 03/11/19 08:59 02/11/19 08:47 Sitagliptin Phosphate (Januvia) 50 mg Q24H ORAL 02/10/19 06:30 03/11/19 06:29 02/10/19 06:03 Temazepam (Restoril) 15 mg HSPRN PRN ORAL Insomnia 02/09/19 17:59 02/16/19 17:58 Trazodone HCl (Desyrel) 50 mg BEDTIME ORAL 02/09/19 21:00 03/10/19 20:59 02/11/19 20:44 Vancomycin HCl (Vanco rx to dose) 1 ea DAILY PRN MISC . 02/10/19 17:45 03/12/19 17:44 Allergies: Coded Allergies: No Known Allergies (Unverified , 01/24/15) Subjective Awake, more responsive, NAD. Objective Last Vital Signs Date Time Temp Pulse Resp B/P (MAP) Pulse Ox O2 Delivery O2 Flow Rate FiO2 02/12/19 00:15 97.8 92 20 143/60 (87) 95 02/11/19 21:00 Room Air 02/11/19 19:46 21 02/08/19 11:49 15.0 Intake and Output 02/11/19 02/12/19 18:59 06:59 Intake Total 480 ml 55 ml Balance 480 ml 55 ml Intake Oral 480 ml IV Total 55 ml # Voids 2 Objective GENERAL: The patient is awake, responsive, in no acute distress, less agitated. HEAD AND NECK: Pupils are equal and reactive to light. Extraocular movements intact. Left eye has cataract. Neck was supple. Positive JVD. LUNGS: Good air entry. No wheezing or rales. Decreased air at bases. HEART: S1, S2. Irregular, Distant heart sounds. No murmur or gallops. ABDOMEN: Soft, nondistended, nontender, mildly obese. EXTREMITIES: No cyanosis, clubbing, or edema. NEUROLOGIC: Cranial nerves II through XII grossly intact. Motor is 5/5 in all extremities. RECTAL: Refused and deferred. GENITOURINARY: Refused and deferred. Assessment/Plan Assessment/Plan ASSESSMENT: 1. Acute CHF exacerbation with diastolic dysfunction. 2. Acute Pulmonary edema. 3. Acute kidney injury and chronic renal insufficiency. 4. Hypertension. 5. Dyslipidemia. 6. Diabetes type 2. 7. Advanced Alzheimer dementia. 8. Osteoarthritis. 9. Atrial flutter with left bundle-branch block. 10. E. coli and Pseudomonas UTI. 11. GPC bacteremia. PLAN: in medical floor. monitor laboratory. Code status is as per POLST in the chart, DNR. Dr. Hernandez, Cardiology Electrophysiology consultation Dr. Cooper, Pulmonary/Critical Care. Abx: Vanco and DC Rocephin IV, Start Levaquin IV Poor prognosis consider hospice care. Inder Tao MD Feb 12, 2019 00:47
[2019-02-12] MEDS: sitaGLIPtin 50mg tab ORAL SCH (05:51)
[2019-02-12] MEDS: NovoLOG Insulin Flexpen SUBQ SCH ×3 (05:52→17:55)
[2019-02-12 06:36] LABS: BASOPHILS % (AUTO) 0.8 % (0.0-2.0); EOSINOPHILS % (AUTO) 2.1 % (0.0-3.0); HEMATOCRIT 34.9 % (37.0-47.0); HEMOGLOBIN 11.2 G/DL (12.0-16.0); LYMPHOCYTES % (AUTO) 19.8 % (20.0-45.0); MEAN CORPUSCULAR VOLUME 91 FL (80-99); MONOCYTES % (AUTO) 8.1 % (1.0-10.0); NEUTROPHILS % (AUTO) 69.2 % (45.0-75.0); PLATELET COUNT 164 K/UL (150-450); RED BLOOD COUNT 3.84 M/UL (4.20-5.40); RED CELL DISTRIBUTION WIDTH 14.8 % (11.6-14.8); WHITE BLOOD COUNT 9.4 K/UL (4.8-10.8)
[2019-02-12 06:57] LABS: ALANINE AMINOTRANSFERASE 7 U/L (12-78); ALBUMIN 2.9 G/DL (3.4-5.0); ALBUMIN/GLOBULIN RATIO 0.7 (1.0-2.7); ALKALINE PHOSPHATASE 60 U/L (46-116); ANION GAP 8 mmol/L (5-15); ASPARTATE AMINO TRANSFERASE 13 U/L (15-37); BILIRUBIN,TOTAL 0.5 MG/DL (0.2-1.0); BLOOD UREA NITROGEN 54 mg/dL (7-18); CARBON DIOXIDE 28 MMOL/L (21-32); CHLORIDE 108 MMOL/L (98-107); CREATININE 2.1 MG/DL (0.55-1.30); POTASSIUM 4.8 MMOL/L (3.5-5.1); SODIUM 144 MMOL/L (136-145)
--- NOTE | 2019-02-12 07:07 | NUR ---
HAND-OFF: Report given to CLAUDIA Tello.
--- NOTE | 2019-02-12 07:44 | NUR ---
NURSE NOTES: received pt in bed, asleep, no sign of acute distress noted. Patient has L hand IV access, saline locked. On Pureweek external urinary device, light gerson output. Bed locked at the lowest position possible, call light within easy reach, siderails up x3. Will continue to monitor pt and follow up with the plan of care.
[2019-02-12 08:00] VITALS: BP 92/75
--- NOTE | 2019-02-12 08:14 | NUR ---
RADIOLOGY: PCXR HAS BEEN COMPLETED 0800 HRS. NF
[2019-02-12] MEDS: Depakote 125mg Sprinkles ORAL SCH (08:41)
[2019-02-12] MEDS: Xarelto 15mg tab ORAL SCH (08:42)
[2019-02-12] MEDS ORDERED: Digoxin 0.125mg tab ORAL SCH (09:00)
[2019-02-12] MEDS ORDERED: Vancomycin 1gm/D5W 275ml IVPB ONE ×2 (09:00)
[2019-02-12 12:00] VITALS: BP 131/72
--- NOTE | 2019-02-12 12:22 | Diagnostic Imaging Report ---
Indication: Dyspnea Comparison: 02/09/2019 A single view chest radiograph was obtained. Findings: Vascular congestion with interstitial edema and prominent vascularity with cardiomegaly noted. Bones are osteopenic. IMPRESSION: Worsening CHF
[2019-02-12] MEDS ORDERED: Digoxin ORAL (12:45)
--- NOTE | 2019-02-12 12:47 | Pulmonology Progress Note ---
Assessment/Plan Problems: (1) Acute pulmonary edema (2) Acute respiratory failure (3) CHF (congestive heart failure) (4) UTI (lower urinary tract infection) (5) Diabetes mellitus Assessment/Plan no new complais awake no new complains looks better check urine cultures iv abx as per ID sliding scale diabetic diet. Subjective ROS Limited/Unobtainable: No Constitutional: Reports: no symptoms HEENT: Repors: no symptoms Allergies: Coded Allergies: No Known Allergies (Unverified , 01/24/15) Objective Last 24 Hour Vital Signs Date Time Temp Pulse Resp B/P (MAP) Pulse Ox O2 Delivery O2 Flow Rate FiO2 02/12/19 09:00 Room Air 02/12/19 08:42 113 02/12/19 08:00 97.6 113 19 92/75 (81) 95 02/12/19 07:44 98 18 96 Room Air 21 02/12/19 07:44 96 Room Air 21 02/12/19 00:15 97.8 92 20 143/60 (87) 95 02/11/19 21:00 Room Air 02/11/19 20:00 98.5 110 18 126/89 (101) 94 02/11/19 19:46 96 Room Air 21 02/11/19 19:46 102 18 96 Room Air 21 02/11/19 16:00 98.5 110 20 97/54 (68) 97 Intake and Output 02/11/19 02/12/19 19:00 07:00 Intake Total 480 ml 245 ml Balance 480 ml 245 ml Intake Oral 480 ml 90 ml IV Total 155 ml # Voids 2 4 # Bowel Movements 1 General Appearance: WD/WN HEENT: normocephalic, atraumatic Respiratory/Chest: chest wall non-tender, lungs clear Breasts: no masses Cardiovascular: normal rate Abdomen: normal bowel sounds, no organomegaly Genitourinary: normal external genitalia Extremities: no clubbing Skin: no rash, no lesions Laboratory Tests 02/12/19 05:40: White Blood Count 9.4, Red Blood Count 3.84L, Hemoglobin 11.2L, Hematocrit 34.9L , Mean Corpuscular Volume 91, Mean Corpuscular Hemoglobin 29.2, Mean Corpuscular Hemoglobin Concent 32.1, Red Cell Distribution Width 14.8, Platelet Count 164, Mean Platelet Volume 8.4, Neutrophils (%) (Auto) 69.2, Lymphocytes (% ) (Auto) 19.8L, Monocytes (%) (Auto) 8.1, Eosinophils (%) (Auto) 2.1, Basophils (%) (Auto) 0.8, Sodium Level 144, Potassium Level 4.8, Chloride Level 108H, Carbon Dioxide Level 28, Anion Gap 8, Blood Urea Nitrogen 54H, Creatinine 2.1H, Estimat Glomerular Filtration Rate , Glucose Level 140H, Calcium Level 9.0, Phosphorus Level 4.0, Magnesium Level 2.8H, Total Bilirubin 0.5, Aspartate Amino Transf (AST/SGOT) 13L, Alanine Aminotransferase (ALT/SGPT) 7L, Alkaline Phosphatase 60, Pro-B-Type Natriuretic Peptide 02938T, Total Protein 6.8, Albumin 2.9L, Globulin 3.9, Albumin/Globulin Ratio 0.7L, Random Vancomycin Level 12.7, Digoxin Level < 0.2L Current Medications Medications (Trade) Dose Ordered Sig/Harjinder Route PRN Reason Start Time Stop Time Status Last Admin Dose Admin Acetaminophen (Tylenol) 650 mg Q4H PRN ORAL Fever 02/09/19 17:58 03/11/19 17:57 02/10/19 09:01 Albuterol/ Ipratropium (Albuterol/ Ipratropium) 3 ml Q4H PRN HHN Shortness of Breath 02/09/19 17:58 02/14/19 17:57 Dextrose (Dextrose 50%) 25 ml Q30M PRN IV Hypoglycemia 02/09/19 17:58 03/11/19 17:57 Dextrose (Dextrose 50%) 50 ml Q30M PRN IV Hypoglycemia 02/09/19 18:15 03/10/19 15:44 Digoxin (Lanoxin) 0.125 mg DAILY ORAL 02/12/19 09:00 03/14/19 08:59 02/12/19 08:42 Divalproex Sodium (Depakote Sprinkles) 125 mg Q12HR ORAL 02/09/19 21:00 03/10/19 20:59 02/12/19 08:41 Insulin Aspart (NovoLOG) BEFORE MEALS AND HS SUBQ 02/09/19 21:00 03/10/19 16:29 02/12/19 12:25 Levofloxacin 100 ml @ 100 mls/hr Q48H IVPB 02/12/19 01:00 02/19/19 00:59 02/12/19 01:27 Ondansetron HCl (Zofran) 4 mg Q6H PRN IVP Nausea & Vomiting 02/09/19 17:58 03/11/19 17:57 Polyethylene Glycol (Miralax) 17 gm DAILYPRN PRN ORAL Constipation 02/09/19 17:59 03/11/19 17:58 Rivaroxaban (Xarelto) 15 mg DAILY ORAL 02/10/19 09:00 03/11/19 08:59 02/12/19 08:42 Sitagliptin Phosphate (Januvia) 50 mg Q24H ORAL 02/10/19 06:30 03/11/19 06:29 02/12/19 05:51 Temazepam (Restoril) 15 mg HSPRN PRN ORAL Insomnia 02/09/19 17:59 02/16/19 17:58 Trazodone HCl (Desyrel) 50 mg BEDTIME ORAL 02/09/19 21:00 03/10/19 20:59 02/11/19 20:44 Vancomycin HCl (Vanco rx to dose) 1 ea DAILY PRN MISC . 02/10/19 17:45 03/12/19 17:44 Anastasia Cooper MD Feb 12, 2019 12:47
[2019-02-12] MEDS ORDERED: CIPRO500 MG/51 PO (12:49)
--- NOTE | 2019-02-12 14:44 | Cardiology Report ---
APPROVED REPORT EXAM: Two-dimensional and M-mode echocardiogram with Doppler and color Doppler. INDICATION LV FUNCTION M-Mode DIMENSIONS IVSd1.1 (0.7-1.1cm)Left Atrium (MM)3.1 (1.6-4.0cm) LVDd5.7 (3.5-5.6cm)Aortic Root2.9 (2.0-3.7cm) PWd1.2 (0.7-1.1cm)Aortic Cusp Exc.1.4 (1.5-2.0cm) IVSs1.2 cm LVDs5.1 (2.5-4.0cm) PWs1.0 cm Global left ventricular hypokinesia. Left ventricular ejection fraction estimated to be 25-30%. No evidence of left ventricular hypertrophy. Anterior Echo-free space, may be due to pericardial fat or effusion. Mild left atrial enlargement . Right cardiac chamber sizes are within normal limits. Aortic valve calcification with decreased cusp excursion c/w aortic stenosis. Thickened mitral valve leaflets with reduced excursion. Mitral annulus and aortic root calcification. Pulmonic valve not well visualized. Normal tricuspid valve structure. IVC at normal size and non-collapsing with respiration suggestive of increased RA pressure. A color flow and spectral Doppler study was performed and revealed: Mild aortic insufficiency. Peak aortic valve gradient of 16 mm Hg and a mean of 9 mmHg. Aortic valve area 1.3 cm2 calculated by continuity equation. Mild mitral regurgitation. Peak mitral valve gradient of 7 mm Hg and a mean of 3 mmHg. Mitral inflow velocities indicates possible pseudo normalization pattern implying moderately elevated left atrial pressure (Grade II ) Mild tricuspid regurgitation. Tricuspid systolic velocities suggests peak right ventricular systolic pressure of 27 mmHg
[2019-02-12 16:00] VITALS: BP 112/71
--- NOTE | 2019-02-12 16:05 | Cardiology Report ---
APPROVED REPORT EKG Measurement Heart [id number] RI 176P [id number] Sinus tachycardia Left bundle branch block Abnormal ECG
--- NOTE | 2019-02-12 17:13 | Internal Med Progress Note ---
Subjective Physician Name Inder Tao Attending Physician Inder Tao MD Current Medications Medications (Trade) Dose Ordered Sig/Harjinder Route PRN Reason Start Time Stop Time Status Last Admin Dose Admin Acetaminophen (Tylenol) 650 mg Q4H PRN ORAL Fever 02/09/19 17:58 03/11/19 17:57 02/10/19 09:01 Albuterol/ Ipratropium (Albuterol/ Ipratropium) 3 ml Q4H PRN HHN Shortness of Breath 02/09/19 17:58 02/14/19 17:57 Dextrose (Dextrose 50%) 25 ml Q30M PRN IV Hypoglycemia 02/09/19 17:58 03/11/19 17:57 Dextrose (Dextrose 50%) 50 ml Q30M PRN IV Hypoglycemia 02/09/19 18:15 03/10/19 15:44 Digoxin (Lanoxin) 0.125 mg DAILY ORAL 02/12/19 09:00 03/14/19 08:59 02/12/19 08:42 Divalproex Sodium (Depakote Sprinkles) 125 mg Q12HR ORAL 02/09/19 21:00 03/10/19 20:59 02/12/19 08:41 Insulin Aspart (NovoLOG) BEFORE MEALS AND HS SUBQ 02/09/19 21:00 03/10/19 16:29 02/12/19 12:25 Levofloxacin 100 ml @ 100 mls/hr Q48H IVPB 02/12/19 01:00 02/19/19 00:59 02/12/19 01:27 Ondansetron HCl (Zofran) 4 mg Q6H PRN IVP Nausea & Vomiting 02/09/19 17:58 03/11/19 17:57 Polyethylene Glycol (Miralax) 17 gm DAILYPRN PRN ORAL Constipation 02/09/19 17:59 03/11/19 17:58 Rivaroxaban (Xarelto) 15 mg DAILY ORAL 02/10/19 09:00 03/11/19 08:59 02/12/19 08:42 Sitagliptin Phosphate (Januvia) 50 mg Q24H ORAL 02/10/19 06:30 03/11/19 06:29 02/12/19 05:51 Temazepam (Restoril) 15 mg HSPRN PRN ORAL Insomnia 02/09/19 17:59 02/16/19 17:58 Trazodone HCl (Desyrel) 50 mg BEDTIME ORAL 02/09/19 21:00 03/10/19 20:59 02/11/19 20:44 Vancomycin HCl (Vanco rx to dose) 1 ea DAILY PRN MISC . 02/10/19 17:45 03/12/19 17:44 Allergies: Coded Allergies: No Known Allergies (Unverified , 01/24/15) Subjective Awake, more responsive, NAD, caregiver at the bedside. Objective Last Vital Signs Date Time Temp Pulse Resp B/P (MAP) Pulse Ox O2 Delivery O2 Flow Rate FiO2 02/12/19 16:00 99.2 114 20 112/71 (85) 97 02/12/19 09:00 Room Air 02/12/19 07:44 21 02/08/19 11:49 15.0 Laboratory Tests Test 02/12/19 05:40 White Blood Count 9.4 K/UL (4.8-10.8) Red Blood Count 3.84 M/UL (4.20-5.40) L Hemoglobin 11.2 G/DL (12.0-16.0) L Hematocrit 34.9 % (37.0-47.0) L Mean Corpuscular Volume 91 FL (80-99) Mean Corpuscular Hemoglobin 29.2 PG (27.0-31.0) Mean Corpuscular Hemoglobin Concent 32.1 G/DL (32.0-36.0) Red Cell Distribution Width 14.8 % (11.6-14.8) Platelet Count 164 K/UL (150-450) Mean Platelet Volume 8.4 FL (6.5-10.1) Neutrophils (%) (Auto) 69.2 % (45.0-75.0) Lymphocytes (%) (Auto) 19.8 % (20.0-45.0) L Monocytes (%) (Auto) 8.1 % (1.0-10.0) Eosinophils (%) (Auto) 2.1 % (0.0-3.0) Basophils (%) (Auto) 0.8 % (0.0-2.0) Sodium Level 144 MMOL/L (136-145) Potassium Level 4.8 MMOL/L (3.5-5.1) Chloride Level 108 MMOL/L (98-107) H Carbon Dioxide Level 28 MMOL/L (21-32) Anion Gap 8 mmol/L (5-15) Blood Urea Nitrogen 54 mg/dL (7-18) H Creatinine 2.1 MG/DL (0.55-1.30) H Estimat Glomerular Filtration Rate mL/min (>60) Glucose Level 140 MG/DL (74-106) H Calcium Level 9.0 MG/DL (8.5-10.1) Phosphorus Level 4.0 MG/DL (2.5-4.9) Magnesium Level 2.8 MG/DL (1.8-2.4) H Total Bilirubin 0.5 MG/DL (0.2-1.0) Aspartate Amino Transf (AST/SGOT) 13 U/L (15-37) L Alanine Aminotransferase (ALT/SGPT) 7 U/L (12-78) L Alkaline Phosphatase 60 U/L (46-116) Pro-B-Type Natriuretic Peptide 10955 pg/mL (0-125) H Total Protein 6.8 G/DL (6.4-8.2) Albumin 2.9 G/DL (3.4-5.0) L Globulin 3.9 g/dL Albumin/Globulin Ratio 0.7 (1.0-2.7) L Random Vancomycin Level 12.7 ug/mL Digoxin Level < 0.2 NG/ML (0.9-2.0) L Intake and Output 02/11/19 02/12/19 19:00 07:00 Intake Total 480 ml 245 ml Balance 480 ml 245 ml Intake Oral 480 ml 90 ml IV Total 155 ml # Voids 2 4 # Bowel Movements 1 Objective GENERAL: Awake, responsive, open her eyes, calm and relaxed, in no acute distress. HEAD AND NECK: Pupils are equal and reactive to light. Extraocular movements intact. Left eye has cataract. Neck was supple. Positive JVD. LUNGS: Good air entry. No wheezing or rales. Decreased air at bases. HEART: S1, S2. Irregular, Distant heart sounds. No murmur or gallops. ABDOMEN: Soft, nondistended, nontender, mildly obese. EXTREMITIES: No cyanosis, clubbing, or edema. NEUROLOGIC: Cranial nerves II through XII grossly intact. Motor is 5/5 in all extremities. RECTAL: Refused and deferred. GENITOURINARY: Refused and deferred. Assessment/Plan Assessment/Plan ASSESSMENT: 1. Acute CHF exacerbation with diastolic dysfunction. 2. Acute Pulmonary edema. 3. Acute kidney injury and chronic renal insufficiency. 4. Hypertension. 5. Dyslipidemia. 6. Diabetes type 2. 7. Advanced Alzheimer dementia. 8. Osteoarthritis. 9. Atrial flutter with left bundle-branch block. 10. E. coli and Pseudomonas UTI. 11. GPC bacteremia. PLAN: in medical floor. monitor laboratory. Code status is as per POLST in the chart, DNR. Dr. Hernandez, Cardiology Electrophysiology consultation Dr. Cooper, Pulmonary/Critical Care. Abx: Vanco and Levaquin IV Poor prognosis consider hospice care. Discharge home today with oral antibiotics however the family member insisting to get IV antibiotics. Inder Tao MD Feb 12, 2019 17:13
[2019-02-12] MEDS ORDERED: LEVAQUIN500 MG ORAL ×2 (17:22→17:27)
--- NOTE | 2019-02-12 17:41 | Cardiac Electrophysiology PN ---
Assessment/Plan Assessment/Plan 1. Elevated troponin of 0.104, 0.11,0.08, likely due to renal failure with creatinine of 3. The patient has underlying left bundle-branch block. DNR and DNI. Treat medically. No CP. BP 90s avoid betablockers No further Troponin levels 2. Atrial flutter. On Digoxin 0.125 daily and Xarelto.Dig level <0.2 Had DCCV at [facility] 05/[address] Bautista 3. CHF EF 25% with BNP of 9000 and also a creatinine of 3. Off iv Lasix for low BP 4. Hypertension. Continue current heart failure medications. 5. 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 Usually FU Dr. Oconnor 6. Diabetes. 7. Renal failure. 8. DNR,DNI DW RN and director career Subjective Subjective DNR and DNI . Nonverbal. Transferred to LAB. senior contracts manager at bedside. Objective Last 24 Hour Vital Signs Date Time Temp Pulse Resp B/P (MAP) Pulse Ox O2 Delivery O2 Flow Rate FiO2 02/12/19 16:00 99.2 114 20 112/71 (85) 97 02/12/19 12:00 97.5 112 20 131/72 (91) 98 02/12/19 09:00 Room Air 02/12/19 08:42 113 02/12/19 08:00 97.6 113 19 92/75 (81) 95 02/12/19 07:44 98 18 96 Room Air 21 02/12/19 07:44 96 Room Air 21 02/12/19 00:15 97.8 92 20 143/60 (87) 95 02/11/19 21:00 Room Air 02/11/19 20:00 98.5 110 18 126/89 (101) 94 02/11/19 19:46 96 Room Air 21 02/11/19 19:46 102 18 96 Room Air 21 Intake and Output 02/11/19 02/12/19 19:00 07:00 Intake Total 480 ml 245 ml Balance 480 ml 245 ml Intake Oral 480 ml 90 ml IV Total 155 ml # Voids 2 4 # Bowel Movements 1 Laboratory Tests Test 02/12/19 05:40 White Blood Count 9.4 K/UL (4.8-10.8) Red Blood Count 3.84 M/UL (4.20-5.40) L Hemoglobin 11.2 G/DL (12.0-16.0) L Hematocrit 34.9 % (37.0-47.0) L Mean Corpuscular Volume 91 FL (80-99) Mean Corpuscular Hemoglobin 29.2 PG (27.0-31.0) Mean Corpuscular Hemoglobin Concent 32.1 G/DL (32.0-36.0) Red Cell Distribution Width 14.8 % (11.6-14.8) Platelet Count 164 K/UL (150-450) Mean Platelet Volume 8.4 FL (6.5-10.1) Neutrophils (%) (Auto) 69.2 % (45.0-75.0) Lymphocytes (%) (Auto) 19.8 % (20.0-45.0) L Monocytes (%) (Auto) 8.1 % (1.0-10.0) Eosinophils (%) (Auto) 2.1 % (0.0-3.0) Basophils (%) (Auto) 0.8 % (0.0-2.0) Sodium Level 144 MMOL/L (136-145) Potassium Level 4.8 MMOL/L (3.5-5.1) Chloride Level 108 MMOL/L (98-107) H Carbon Dioxide Level 28 MMOL/L (21-32) Anion Gap 8 mmol/L (5-15) Blood Urea Nitrogen 54 mg/dL (7-18) H Creatinine 2.1 MG/DL (0.55-1.30) H Estimat Glomerular Filtration Rate mL/min (>60) Glucose Level 140 MG/DL (74-106) H Calcium Level 9.0 MG/DL (8.5-10.1) Phosphorus Level 4.0 MG/DL (2.5-4.9) Magnesium Level 2.8 MG/DL (1.8-2.4) H Total Bilirubin 0.5 MG/DL (0.2-1.0) Aspartate Amino Transf (AST/SGOT) 13 U/L (15-37) L Alanine Aminotransferase (ALT/SGPT) 7 U/L (12-78) L Alkaline Phosphatase 60 U/L (46-116) Pro-B-Type Natriuretic Peptide 21450 pg/mL (0-125) H Total Protein 6.8 G/DL (6.4-8.2) Albumin 2.9 G/DL (3.4-5.0) L Globulin 3.9 g/dL Albumin/Globulin Ratio 0.7 (1.0-2.7) L Random Vancomycin Level 12.7 ug/mL Digoxin Level < 0.2 NG/ML (0.9-2.0) L Objective HEAD AND NECK: no jugular venous distention. LUNGS: Decreased breath sounds. CARDIOVASCULAR: Irregular S1 and S2 with no gallop. ABDOMEN: Soft. EXTREMITIES: A 1+ pitting edema. Valeriy Hernandez MD Feb 12, 2019 17:41
--- NOTE | 2019-02-12 19:30 | NUR ---
NURSE NOTES: Received a patient resting in bed. AAO x 1 with stable condition. Caregiver at bedside. IV on R hand SL intact. Can't not speak [place]. Waiting for ambulance to discharge to home. Bed locked, lowest position, alarm on, side rails x 2, call light within reach. Will continue to monitor.
--- NOTE | 2019-02-12 19:30 | NUR ---
HAND-OFF: Report given to CLAUDIA Ramos.
[2019-02-12] MEDS ORDERED: LEVOFLOXAC500 MG/100 IVPB (19:36)
--- NOTE | 2019-02-12 21:00 | NUR ---
NURSE NOTES: Patient was discharged to [facility] with [facility], per AM RN and reel film inspector arranged. Patient left via gurney with 2 wood mechanist. Discharge instructions and prescriptions were given to the 2 wood mechanist. caregiver and daughter awaiting at home to receive patient. IV on right hand intact. ID band removed. Remained free from injury.
--- NOTE | 2019-02-12 21:59 | NUR ---
NURSE NOTES: Filled prescription from [facility] pharmacy for Cipro tabs were surrendered and stored in our hospital pharmacist. Patient was discharged with the change from PO antibiotics to IV antibiotics and there was no need for the Cipro tablets.
--- NOTE | 2019-02-14 11:32 | Discharge Summary ---
Discharge Summary Discharge Summary _ DATE OF ADMISSION: 02/08/2019 DATE OF DISCHARGE: 02/12/2019 DISCHARGED BY: Dr. Tao REASON FOR ADMISSION: 89 years old female with past medical history of diabetes mellitus, hypertension , congestive heart failure, status post TAVR , presented from home with chief complaint of increased weakness and shortness of breath. Patient was recently discharged from [facility]. Patient denied chest pain. She denied fever or chills. Upon evaluation in emergency department patient was found to be in pulmonary edema and admitted to telemetry floor for further management. Laboratory work-up revealed no leukocytosis, hemoglobin 11.1, hematocrit 35. Troponin - 0.104. Pro BNP 8992. EKG reveals sinus rhythm , left bundle branch block, no acute ischemic changes. BUN 61, creatinine 3.0. Potassium 5.2. Stable LFT. Urinalysis revealed pyuria and few bacteria Chest x-ray demonstrated cardiomegaly, bilateral interstitial edema and possible small pleural effusion. Patient with DNR/DNI status. CONSULTANTS: control officer Dr. Choi pulmonary Dr. Cooper HOSPITAL COURSE: Patient admitted to telemetry floor. Echocardiogram revealed ejection fraction of 25 to 30% with global left ventricular hypokinesis. Moderately elevated left atrial pressure grade 2. Right ventricular systolic pressure of 27. Evidence of aortic stenosis. Venous duplex bilateral lower extremity revealed no evidence of acute DVT. Supplemental oxygen provided as needed to keep pulse oximetry above 92%. Pulmonary toilet provided as needed. Patient started on diuresis with close monitoring of volumes and cardiorenal parameters. DVT prophylaxis provided. Serial troponin- 0.104, 0.11, 0.08 likely due to renal failure. Patient also had underlying left bundle branch block. Patient with DNR/DNI status. Olive Packer recommended conservative medical management. No evidence of chest pain. Blood pressure in the 90s. Olive Packer recommended avoid beta-blockers given low blood pressure. Patient with history of atrial flutter. Rate was controlled with digoxin. Patient was on anticoagulation with Xarelto. Patient had DCCV at [facility] by Dr. Bautista in May 2018. Patient undergone TAVR procedure by Dr. Gonsalez at [facility]. Patient usually follow-up with control officer Dr. Bowie. Blood culture revealed Enterococcus faecalis. Urine culture revealed E. coli and Pseudomonas. Patient received IV antibiotic in the hospital, complete course at home as outlined in medication reconciliation list . Renal ultrasound revealed slightly increased renal echogenicity bilaterally, consistent with medical renal disease. No hydronephrosis. Renal parameters and electrolytes were closely monitored. Electrolytes corrected as needed . Prior to discharge BUN from 61 down to 54 , and creatinine from 3 down to 2.1. Patient likely had acute kidney injury on chronic renal insufficiency. Hyperkalemia corrected -potassium 4.8 prior to discharge Blood sugar was managed with sliding scale of insulin and Januvia. Supportive care provided. Bowel regimen instituted. Patient was working with physical therapy. Fall precaution maintained. Patient clinically stabilized and was ready for discharge home. FINAL DIAGNOSES: Acute CHF exacerbation with diastolic dysfunction Acute pulmonary edema Acute kidney injury on chronic renal insufficiency Atrial flutter with left bundle branch block Cardiomyopathy with ejection fraction 25% Elevated troponin, likely due to renal failure History of hypertension status post TAVR E. coli and Pseudomonas UTI Enterococcal bacteremia Diabetes mellitus type 2 Dyslipidemia Advanced Alzheimer's dementia Osteoarthritis DNR/DNI status DISCHARGE MEDICATIONS: See Medication Reconciliation list. DISCHARGE INSTRUCTIONS: Patient was discharged home. . Follow up with primary care provider in one week. I have been assigned to dictate discharge summary for this account. I was not involved in the patient's management. Vandana Ritchie NP Feb 14, 2019 11:32
== END 2019-02-12 21:00 | disposition home health service (06) | DRG 291 ==
LOC: EDBD 11:56 → EMR 12:40 → EDBD 12:46 → 2E 12:46 → EDBEDREQSVC 13:10 → EDBEDREQ 14:11 → 2E 15:55 → 4E 02-09 18:15
DX: I13.0 Hypertensive heart and chronic kidney disease with heart failure and stage 1 through stage 4 chronic kidney disease, or unspecified chronic kidney disease (principal); I50.33 Acute on chronic diastolic (congestive) heart failure; N17.9 Acute kidney failure, unspecified; I48.92 Unspecified atrial flutter; N39.0 Urinary tract infection, site not specified; R78.81 Bacteremia; N18.9 Chronic kidney disease, unspecified; G30.9 Alzheimer's disease, unspecified; F02.80 Dementia in other diseases classified elsewhere, unspecified severity, without behavioral disturbance, psychotic disturbance, mood disturbance, and anxiety; E78.5 Hyperlipidemia, unspecified; I44.7 Left bundle-branch block, unspecified; M19.90 Unspecified osteoarthritis, unspecified site; Z66 Do not resuscitate; Z79.01 Long term (current) use of anticoagulants; I42.9 Cardiomyopathy, unspecified; Z95.4 Presence of other heart-valve replacement; B96.20 Unspecified Escherichia coli [E. coli] as the cause of diseases classified elsewhere; B96.5 Pseudomonas (aeruginosa) (mallei) (pseudomallei) as the cause of diseases classified elsewhere; B95.2 Enterococcus as the cause of diseases classified elsewhere
CPT/HCPCS: 36415; 71045; 76770; 80048; 80053; 80162; 80202; 81003; 82465; 82550; 82553; 82962; 83605; 83735; 83880; 84100; 84484; 85025; 87040; 87081; 87086; 87181; 93005; 93306; 93970; 94664; 96374; 96375; 99285; J1815